=== PATIENT | male | born 1985 | race Caucasian/White ===

== ENCOUNTER → 2018-02-21 15:56 | Outpatient (CLI) | payer BC, SELFPAY ==
[2018-02-21 16:08] LABS: Basophils # 0.1 K/mm3 (0-0.2); Eosinophils # 0.1 K/mm3 (0.0-0.4); Eosinophils % 1.9 % (0.1-12.0); Hematocrit 41.2 % (42.0-52.0); Hemoglobin 13.8 g/dL (14.1-18.0); Lymphocytes # 1.9 K/mm3 (0.7-4.5); Lymphocytes % 29.8 K/mm3 (10-50); Mean Corpuscular HGB Conc 33.5 g/dL (31.8-35.4); Mean Corpuscular Hemoglobin 29.3 pg (27.0-31.2); Mean Corpuscular Volume 87.6 fl (80-94); Mean Platelet Volume 7.5 fl (7.4-10.4); Monocytes # 0.3 K/mm3 (0.1-1.0); Monocytes % 4.9 % (1.7-9.3); Neutrophils % 62.4 % (37.0-80.0); Platelet Count 273 K/mm3 (142-424); Red Cell Distribution Width 13.1 % (11.5-17.5); White Blood Count 6.4 K/mm3 (4.8-10.8)
[2018-02-21 18:06] LABS: Erythrocyte Sedimentation Rate 10 mm/hr (0-15)
[2018-02-28 13:00] LABS: HLA-B27 Positive (.)
== END ==
PROVIDERS: Visit Provider Internal Medicine
DX: H20.029 Recurrent acute iridocyclitis, unspecified eye (principal); M54.9 Dorsalgia, unspecified
CPT/HCPCS: 36415; 85025; 85651; 86812

== ENCOUNTER → 2018-03-14 14:23 | Outpatient (CLI) | payer BC, SELFPAY ==
--- NOTE | 2018-03-14 14:29 | XR_ITS ---
XR hip LT 2-3V w/pelvis HISTORY: ITS.REASON: LEFT POSTERIOR HIP PAIN ORDERING PHYSICIAN: Yazan Wayne PATIENT AGE: 32 years COMPARISON: None FINDINGS: No fracture or dislocation is evident. No significant degenerative change. No lytic or blastic change. Unremarkable soft tissues IMPRESSION: Negative hip
== END ==
PROVIDERS: PCP Internal Medicine; Visit Provider Internal Medicine
DX: M25.552 Pain in left hip (principal)
CPT/HCPCS: 73502

== ENCOUNTER → 2018-07-01 15:22 | Outpatient (CLI) | payer BC, SELFPAY ==
[2018-07-01 15:40] LABS: Basophils # 0.1 K/mm3 (0-0.2); Basophils % 0.9 % (0.1-2.0); Eosinophils # 0.1 K/mm3 (0.0-0.4); Eosinophils % 1.8 % (0.1-12.0); Hematocrit 41.8 % (42.0-52.0); Hemoglobin 13.6 g/dL (14.1-18.0); Lymphocytes # 1.9 K/mm3 (0.7-4.5); Lymphocytes % 28.4 K/mm3 (10-50); Mean Corpuscular HGB Conc 32.4 g/dL (31.8-35.4); Mean Corpuscular Hemoglobin 28.4 pg (27.0-31.2); Mean Corpuscular Volume 87.5 fl (80-94); Mean Platelet Volume 7.2 fl (7.4-10.4); Monocytes # 0.3 K/mm3 (0.1-1.0); Monocytes % 4.5 % (1.7-9.3); Neutrophils # 4.4 K/mm3 (1.8-7.8); Neutrophils % 64.4 % (37.0-80.0); Platelet Count 265 K/mm3 (142-424); Red Blood Count 4.78 M/mm3 (4.60-6.20); Red Cell Distribution Width 13.2 % (11.5-17.5); White Blood Count 6.7 K/mm3 (4.8-10.8)
[2018-07-01 16:51] LABS: Alanine Aminotransferase 26 U/L (12-78); Albumin Level 4.1 gm/dL (3.4-5.0); Albumin/Globulin Ratio 1.2 (1.1-1.8); Alkaline Phosphatase 79 U/L (46-116); Anion Gap 13.5 mEq/L (5-15); Aspartate Amino Transferase 18 U/L (15-37); Bilirubin,Total 0.4 mg/dL (0.2-1.0); Blood Urea Nitrogen 25 mg/dL (7-18); Calcium 9.6 mg/dL (8.5-10.1); Carbon Dioxide 29 mmol/L (21.0-32.0); Chloride 103 mmol/L (98-107); Chol/HDL Ratio 2.9 (1-3.5); Cholesterol 230 mg/dL (140-200); Creatinine,Serum 0.98 mg/dL (0.70-1.30); Estimated Glomerular Filt Rate 88 ml/min (>60); GFR (African American) 107 ML/MIN (>60); Globulin 3.3 gm/dl (1.3-3.2); Glucose 92 mg/dL (74-106); HDL Cholesterol 78 mg/dL (27-67); LDL Cholesterol 140 mg/dL (0-130); Potassium 4.5 mmoL/L (3.5-5.1); Sodium 141 mmol/L (136-145); Thyroid Stimulating Hormone 0.45 uIU/ml (0.358-3.740); Total Protein,Serum 7.4 gm/dL (6.4-8.2); Triglycerides 62 mg/dL (30-200); VLDL Cholesterol 12 mg/dL (0-40)
[2018-07-04 19:10] LABS: Testosterone,Free 5.1 pg/mL (8.7-25.1)
== END ==
PROVIDERS: PCP Internal Medicine; Visit Provider Internal Medicine
DX: I95.1 Orthostatic hypotension (principal); K29.70 Gastritis, unspecified, without bleeding; E78.5 Hyperlipidemia, unspecified; R68.82 Decreased libido
CPT/HCPCS: 36415; 80053; 80061; 84402; 84443; 85025

== ENCOUNTER → 2018-08-12 08:43 | Outpatient (CLI) | payer BC, SELFPAY ==
[2018-08-14 15:18] LABS: Testosterone,Free 3.5 pg/mL (8.7-25.1)
== END ==
PROVIDERS: Visit Provider Internal Medicine
DX: R79.89 Other specified abnormal findings of blood chemistry (principal)
CPT/HCPCS: 36415; 84402

== ENCOUNTER → 2018-08-25 16:59 | Outpatient (CLI) | payer BC, SELFPAY ==
[2018-08-27 07:17] LABS: FSH 1.3 mIU/mL (1.5-12.4); LH 3.3 mIU/mL (1.7-8.6)
[2018-08-27 09:18] LABS: Prolactin 6.3 ng/mL (4.0-15.2)
== END ==
LOC: LAB 08-26 08:30 → LAB.DROPOF 08-26 08:30
PROVIDERS: Visit Provider Internal Medicine
DX: R79.89 Other specified abnormal findings of blood chemistry (principal)
CPT/HCPCS: 83001; 83002; 84146

== ENCOUNTER → 2018-09-09 09:48 | Outpatient (CLI) | payer BC, SELFPAY ==
--- NOTE | 2018-09-09 09:50 | MR_ITS ---
MR head/brain wo/w con HISTORY: Dizziness, decreased pituitary function, low testosterone ITS.REASON: DECREASE PITUITARY FUNCTION ORDERING PHYSICIAN: Yazan Wayne PATIENT AGE: 33 years Comparison: None TECHNIQUE: Standard multiplanar multiecho sequences are performed without and with gadolinium enhancement. Dynamic imaging is performed of the pituitary gland following contrast administration with coronal thin sections. FINDINGS: No midline shift, mass effect, intracranial hemorrhage, hydrocephalus, or acute infarction is evident. There are nonspecific perivascular dilated spaces along the cerebral convexity.. No enhancing lesions are evident. No intra or extra-axial mass. The cerebellopontine angles, cerebellum, and brainstem have an unremarkable appearance The pituitary has an unremarkable appearance. No abnormal enhancement or pituitary mass or microadenoma evident. The pituitary stalk is midline. Optic chiasm is unremarkable. The craniocervical junction is unremarkable. There is normal yusuf-white matter differentiation with no abnormal white matter signal intensity evident. There is some mild mucosal thickening of the ethmoid sinuses. IMPRESSION: 1. Negative MRI of the brain without and with contrast. 2. No evidence of pituitary lesion
== END ==
PROVIDERS: PCP Internal Medicine; Visit Provider Internal Medicine
DX: E23.0 Hypopituitarism (principal); E29.1 Testicular hypofunction
CPT/HCPCS: 70553; A9576

== ENCOUNTER → 2018-11-11 12:27 | Outpatient (CLI) | payer BC, SELFPAY ==
[2018-11-12 08:58] LABS: Testosterone,Total 314 ng/dL (264-916)
== END ==
PROVIDERS: Visit Provider Internal Medicine
DX: E29.1 Testicular hypofunction (principal)
CPT/HCPCS: 36415; 84403

== ENCOUNTER → 2019-09-16 16:18 | Outpatient (CLI) | payer BC, SELFPAY ==
[2019-09-16 16:26] LABS: Basophils % 0.7 % (0.1-2.0); Eosinophils # 0.1 K/mm3 (0.0-0.4); Eosinophils % 1.8 % (0.1-12.0); Hematocrit 46.9 % (42.0-52.0); Hemoglobin 15.6 g/dL (14.1-18.0); Lymphocytes # 1.7 K/mm3 (0.7-4.5); Lymphocytes % 32.9 % (10-50); Mean Corpuscular HGB Conc 33.3 g/dL (31.8-35.4); Mean Corpuscular Hemoglobin 29.7 pg (27.0-31.2); Mean Corpuscular Volume 89.2 fl (80-94); Mean Platelet Volume 7.9 fl (7.4-10.4); Monocytes # 0.5 K/mm3 (0.1-1.0); Neutrophils # 2.8 K/mm3 (1.8-7.8); Neutrophils % 55.7 % (37.0-80.0); Platelet Count 223 K/mm3 (142-424); Red Blood Count 5.26 M/mm3 (4.60-6.20); Red Cell Distribution Width 13.1 % (11.5-17.5); White Blood Count 5.1 K/mm3 (4.8-10.8)
[2019-09-16 17:52] LABS: Alanine Aminotransferase 54 U/L (12-78); Albumin Level 3.7 gm/dL (3.4-5.0); Albumin/Globulin Ratio 1.1 (1.1-1.8); Alkaline Phosphatase 66 U/L (46-116); Amylase 43 U/L (25-115); Anion Gap 12.3 mEq/L (5-15); Aspartate Amino Transferase 38 U/L (15-37); Bilirubin,Total 0.4 mg/dL (0.2-1.0); Blood Urea Nitrogen 18 mg/dL (7-18); Calcium 8.6 mg/dL (8.5-10.1); Carbon Dioxide 30 mmol/L (21.0-32.0); Chloride 101 mmol/L (98-107); Creatinine,Serum 0.99 mg/dL (0.70-1.30); Estimated Glomerular Filt Rate 87 ml/min (>60); GFR (African American) 105 ML/MIN (>60); Globulin 3.3 gm/dl (1.3-3.2); Glucose 85 mg/dL (74-106); Potassium 4.3 mmoL/L (3.5-5.1); Sodium 139 mmol/L (136-145)
== END ==
PROVIDERS: Visit Provider Internal Medicine
DX: R10.9 Unspecified abdominal pain (principal); R11.0 Nausea
CPT/HCPCS: 80053; 82150; 85025

== ENCOUNTER 2020-10-16 11:48 | Emergency (ER) | payer BC, SELFPAY ==
[2020-10-16 11:49] VITALS: BP 136/85; PULSE 81; RESP 16; TEMP 36.9; O2SAT 98; BMI 27.2
--- NOTE | 2020-10-16 12:05 | CT_ITS ---
PROCEDURE: CT HEAD/BRAIN WO CON CLINICAL INDICATION: feeling weird Facial in head tingling, stroke valuation COMPARISON: No exams were available for comparison TECHNIQUE: Axial images obtained. All CT scans at the facility use one or more dose reduction, viz: automated exposure control, ma/kV adjustment per patient size (including targeted exams where dose is matched to indication, i.e. head), or iterative reconstruction technique. FINDINGS: No midline shift, mass effect, intracranial hemorrhage, hydrocephalus, or extra-axial fluid collection is evident. The calvarium has an unremarkable appearance. No mastoid effusion. No sinus air-fluid level. There is mild prominence of the adenoids. Minimal mucosal thickening involves the ethmoid sinuses. IMPRESSION: No acute intracranial finding Dictated by: Mina Sierra MD 10/16/2020 12:35 Mina Sierra MD in [place] 10/16/2020 12:35
--- NOTE | 2020-10-16 12:12 | HMH.EDGENADL ---
ED Disposition Clinical Impression: Dehydration Acute sinusitis Qualifiers: Sinusitis location: frontal Disposition: Home, Self-Care Condition on Discharge: Good Instructions: Sinusitis Additional Instructions: You were seen on an emergency basis. It is very important that you follow up with your primary care provider and/or specialist as we discussed within 2 days. All labs and imaging were obtained and interpreted here to rule out life threatening emergencies, but your final results should be reviewed by your primary doctor at your follow up appointment. Please return to the emergency department if any of your symptoms worsen, or if they do not improve as we discussed. Prescriptions: Amoxicillin/Potassium Clav [Augmentin 875-125 Tablet] 1 tab PO Q12H #20 tab Prescription Printed Fluticasone Propionate [Flonase 50mcg nasal spray 16gm] 1 spr NS DAILY #1 bottle Prescription Printed Referrals: Yazan Wayne [Primary Care Provider] - - Critical Care Critical Care Time: No Attestation: On , the high probability of a clinically significant, sudden or life threatening deterioration of the following system(s) required my full and direct attention, intervention and personal management. The time I documented below is in addition to time spent performing reported procedures but includes the following listed in this critical care notation. Medical Decision Making - Medical Records Medical records reviewed: Yes: I reviewed the patient's medical records. - Bobby Inquiry Pt receiving controlled substance: No Vital Signs: 10/16/20 11:49 10/16/20 12:19 10/16/20 13:19 Temperature 98.4 F Temperature Source Oral Pulse Rate [Right] 81 75 69 Respiratory Rate 16 18 18 Blood Pressure [Right Arm] 136/85 133/76 133/71 Blood Pressure Mean [Right Arm] 102 95 91 Blood Pressure Source [Right Arm] Automatic Cuff Automatic Cuff Automatic Cuff Blood Pressure Position [Right Arm] Sitting Sitting Supine 02 Sat by Pulse Oximetry 98 98 96 Oxygen Delivery Method Room Air 10/16/20 13:30 Temperature Temperature Source Pulse Rate [Right] 84 Respiratory Rate 16 Blood Pressure [Right Arm] 133/71 Blood Pressure Mean [Right Arm] 91 Blood Pressure Source [Right Arm] Automatic Cuff Blood Pressure Position [Right Arm] Sitting 02 Sat by Pulse Oximetry 98 Oxygen Delivery Method Room Air - Lab Data Lab Results 10/16/20 12:45: WBC 3.8 L, RBC 4.90, Hgb 14.6, Hct 43.5, MCV 88.9, MCH 29.8, MCHC 33.6, RDW 13.6, Plt Count 229, MPV 7.7, Neut % (Auto) 53.7, Lymph % (Auto) 36.4, [place] % (Auto) 6.9, Eos % (Auto) 1.6, Baso % (Auto) 1.3, Neut # (Auto) 2.0, Lymph # (Auto) 1.4, [place] # (Auto) 0.3, Eos # (Auto) 0.1, Baso # (Auto) 0.1 10/16/20 12:45: Sodium 137, Potassium 4.4, Chloride 102, Carbon Dioxide 28, Anion Gap 11.4, BUN 14, Creatinine 0.90, Estimated Creat Clear 140, Estimated GFR 96, Est GFR ( Amer) 116, Glucose 103 H, Calcium 9.5, Total Bilirubin 0.6, AST 48, ALT 37, Alkaline Phosphatase 65, Total Protein 7.5, Albumin 4.6, Globulin 2.9, Albumin/Globulin Ratio 1.6 Result diagrams: 10/16/20 12:45 10/16/20 12:45 Orders (Tests/Meds): ED MEDICATIONS Generic Name Dose Route Start Last Admin Trade Name Freq PRN Reason Stop Dose Admin Sodium Chloride 1,000 mls @ 999 mls/hr 10/16/20 12:15 10/16/20 13:03 Sod Chlor 0.9% 1000ml Bag IV 10/16/20 13:15 999 mls/hr .Q1H1M JUSTINE Administration Medical Decision Narrative: 35-year-old male presenting with facial paresthesias and frontal pressure. Nontoxic, afebrile, hemodynamically stable, nonfocal, neuro intact, atraumatic. Head CT negative for acute disease. EKG nonischemic and without arrhythmia. Electrolytes and glucose are nonactionable. CBC is nonactionable. Symptoms improved with 1 L of IV lactated Ringer's. Clinically, patient has sinusitis and will treat with Augmentin and have him follow-up with PCP in 2 days. General Adult HPI - General Chief com
--- NOTE | 2020-10-16 12:13 | PC.NURSE ---
pt going to CT
[2020-10-16 12:19] VITALS: BP 133/76; PULSE 75; RESP 18; O2SAT 98
[2020-10-16 12:52] LABS: Basophils # 0.1 K/mm3 (0-0.2); Basophils % 1.3 % (0.1-2.0); Eosinophils # 0.1 K/mm3 (0.0-0.4); Eosinophils % 1.6 % (0.1-12.0); Hematocrit 43.5 % (42.0-52.0); Hemoglobin 14.6 g/dL (14.1-18.0); Lymphocytes # 1.4 K/mm3 (0.7-4.5); Lymphocytes % 36.4 % (10-50); Mean Corpuscular HGB Conc 33.6 g/dL (31.8-35.4); Mean Corpuscular Hemoglobin 29.8 pg (27.0-31.2); Mean Corpuscular Volume 88.9 fl (80-94); Mean Platelet Volume 7.7 fl (7.4-10.4); Monocytes # 0.3 K/mm3 (0.1-1.0); Monocytes % 6.9 % (1.7-9.3); Neutrophils % 53.7 % (37.0-80.0); Platelet Count 229 K/mm3 (142-424); Red Cell Distribution Width 13.6 % (11.5-17.5); White Blood Count 3.8 K/mm3 (4.8-10.8)
--- NOTE | 2020-10-16 12:55 | ECG_ITS ---
APPROVED REPORT Exam: Resting ECG HR:67 bpm ECG Measurements Heart Rate 67 AXES MD 146 P 55 QRSd 102 QRS 61 QT 386 T 54 QTc 407 Conclusion Normal sinus rhythm with sinus arrhythmia Incomplete right bundle branch block Late R wave progression Abnormal ECG Electronically signed by : Cricket Matthews, 10/16/2020 17:41:08
[2020-10-16 13:03] LABS: Alanine Aminotransferase 37 U/L (12-78); Albumin Level 4.6 g/dl (3.5-5.0); Albumin/Globulin Ratio 1.6 (1.1-1.8); Alkaline Phosphatase 65 U/L (38-126); Anion Gap 11.4 mEq/L (5-15); Aspartate Amino Transferase 48 U/L (17-59); Bilirubin,Total 0.6 mg/dl (0.2-1.3); Blood Urea Nitrogen 14 mg/dl (9-20); Calcium 9.5 mg/dl (8.4-10.2); Carbon Dioxide 28 mmol/L (22.0-30.0); Chloride 102 mmol/L (98-107); Creatinine Clearance Estimated 140 mL/min (50-200); Estimated Glomerular Filt Rate 96 ml/min (>60); GFR (African American) 116 ML/MIN (>60); Globulin 2.9 g/dL (1.3-3.2); Glucose 103 mg/dl (74-100); Potassium 4.4 mmoL/L (3.5-5.1); Sodium 137 mmol/L (136-145); Total Protein,Serum 7.5 g/dl (6.3-8.2)
[2020-10-16 13:19] VITALS: BP 133/71; PULSE 69; RESP 18; O2SAT 96
[2020-10-16 13:30] VITALS: BP 133/71; PULSE 84; RESP 16; O2SAT 98
[2020-10-16 14:40] VITALS: BP 127/78; PULSE 78; RESP 16; TEMP 36.6; O2SAT 98
== END 2020-10-16 14:41 | disposition home or self-care (01) ==
PROVIDERS: Emergency Provider Physician Assistant; PCP Internal Medicine
DX: E86.0 Dehydration (principal); J01.90 Acute sinusitis, unspecified; M45.9 Ankylosing spondylitis of unspecified sites in spine
CPT/HCPCS: 70450; 80053; 85025; 93005; 96365; 99283

== ENCOUNTER → 2020-10-17 15:51 | Outpatient (CLI) | payer BC, SELFPAY ==
--- NOTE | 2020-10-17 15:56 | XR_ITS ---
PROCEDURE: XR SHOULDER LT MIN 2V CLINICAL INDICATION: LT SHOULDER PAIN COMPARISON: No exams were available for comparison FINDINGS: No fracture or dislocation. No lytic or blastic change. There is normal mineralization. The joint spaces are well-preserved. No significant degenerative/arthritic changes. No erosive changes evident. Other findings:None. IMPRESSION: No acute findings. Dictated by: Mina Sierra MD 10/17/2020 16:16 Mina Sierra MD in [place] 10/17/2020 16:16
== END ==
PROVIDERS: PCP Internal Medicine; Visit Provider Internal Medicine
DX: M25.512 Pain in left shoulder (principal)
CPT/HCPCS: 73030

== ENCOUNTER → 2020-11-02 08:06 | Outpatient (CLI) | payer BC, SELFPAY ==
--- NOTE | 2020-11-02 08:11 | XR_ITS ---
PROCEDURE: XR SHOULDER LT MIN 2V CLINICAL INDICATION: left shoulder pain COMPARISON: DX XR SHOULDER LT MIN 2V from 10/17/2020 FINDINGS: No fracture or dislocation. No lytic or blastic change. There is normal mineralization. The joint spaces are well-preserved. No significant degenerative/arthritic changes. No erosive changes evident. Other findings:None. IMPRESSION: Negative left shoulder Dictated by: Mina Sierra MD 11/02/2020 11:01 Mina Sierra MD in [place] 11/02/2020 11:01
== END ==
PROVIDERS: PCP Internal Medicine; Visit Provider Orthopaedic Surgery
DX: M25.512 Pain in left shoulder (principal)
CPT/HCPCS: 73030

== ENCOUNTER → 2021-06-27 10:34 | Outpatient (CLI) | payer BC, SELFPAY | PROVIDERS: PCP Internal Medicine; Visit Provider Nurse Practitioner | DX: Z20.822 Contact with and (suspected) exposure to COVID-19 (principal) | CPT/HCPCS: C9803; U0003; U0005 ==

== ENCOUNTER 2021-07-02 09:52 | Emergency (ER) | payer BC, SELFPAY ==
[2021-07-02 11:00] VITALS: BP 126/81; PULSE 75; RESP 19; TEMP 37.1; O2SAT 98; BMI 25.0
[2021-07-02 11:10] VITALS: BP 126/81; PULSE 75; RESP 19; TEMP 37.1; O2SAT 98
--- NOTE | 2021-07-02 11:19 | HMH.EDUTC ---
[facility] [place] Clinical Impression: Encounter for laboratory testing for COVID-19 virus Disposition: Home, Self-Care Condition on Discharge: Good Instructions: DI for COVID-19 (Suspected or Confirmed ), Preventing the Spread of Coronavirus Discharge Instructions Additional Instructions: *Monitor Temp, Over the counter Motrin or Tylenol as directed/as needed Tylenol every 4 hours and Motrin every 6 hours (as long as your family doctor has told you that you can take it) for fever or pain. and straight to ER if unable to lower temp less than 101.0 after medication given Follow up IMMEDIATELY for new or worsening symptoms or no Noticeable improvement over the next 48-72 hours. 911 for difficulty breathing or swallowing You were tested for today for COVID19 your test result should be back in the next 24-48 hours, you may call to the [facility] to see if your test results are back in the next 48 hours [phone] [facility] hours are 9am-9pm You was given a handout with instructions for Self Quarantine and Self isolation for while you wait on test results and what to do if they are positive If you are positive the Health Dept will be contacting you also Make sure to take your Vitamins Vit. C Vit D and Zinc if you can take them Referrals: Yazan Wayne [Primary Care Provider] - As needed Forms: Work/School Release Medical Decision Making - Bobby Inquiry Pt receiving controlled substance: No Bobby was queried for this patient: No Vital Signs: 07/02/21 11:00 07/02/21 11:10 Temperature 98.7 F 98.7 F Temperature Source Temporal Artery Scan Temporal Artery Scan Pulse Rate 75 Pulse Rate [Right Brachial] 75 Respiratory Rate 19 19 Blood Pressure 126/81 Blood Pressure [Right Arm] 126/81 Blood Pressure Mean [Right Arm] 96 Blood Pressure Source Automatic Cuff Blood Pressure Source [Right Arm] Automatic Cuff Blood Pressure Position Sitting Blood Pressure Position [Right Arm] Sitting 02 Sat by Pulse Oximetry 98 Oxygen Delivery Method Room Air Room Air Orders (Tests/Meds): ORDERS Category Date Time Status Covid-19 Nasal PCR ([facility]) Routine Lab 07/02/21 10:35 [place] [facility] [place] - General Stated complaint: covid test / expose Time Seen by Provider: 07/02/21 11:00 Mode of Arrival: Ambulatory Source of Information: Patient Description of Symptoms (Recalled from Triage Doc. by RN): covid test HEENT Symptoms (Recalled from RN notes): No Resp Symptoms (Recalled from RN notes): No Skin Symptoms (Recalled from RN notes): No MS Symptoms (Recalled from RN notes): No Functional Status (Recalled from RN notes): yes - History of Present Illness Provider Complaint: Patient states that his childrens mother recently tested positive for COVID but wasnt having any symptoms States that he has been keeping thier child that was around her and his work wanted him to get tested States that he is not having any symptoms at this time - Related Data Home Medications Medication Instructions Recorded Confirmed adalimumab 10 mg/0.2 mL See Rx Instructions SQ .COMPLEX 11/02/20 11/02/20 subcutaneous syringe kit Allergies Allergy/AdvReac Type Severity Reaction Status Date / Time No Known Allergies Allergy Verified 07/02/21 11:09 - Worker's Comp Is this a Worker's Comp case?: No Is this an H Worker's Comp?: No Is this a [place] Worker's Comp?: No [facility] History - Hepatitis A Screen Drug use history?: No High risk sexual behaviors?: No History of sexually transmitted infection?: No Currently employed?: No Childcare worker?: No Do you have indoor plumbing?: Yes Do you have electricity?: Yes Attestation statement:: This patient has been screened for Hepatitis A risk factors. I have reviewed the patient's past medical history: Yes Comment: Autoimmune disorder. Laterality Cases: Bilateral: Tonsillectomy Other Surgeries: Yes: EGD Amputation: No Fractures: No - Social History Smoking Status: Current some
== END 2021-07-02 11:10 | disposition home or self-care (01) ==
PROVIDERS: Emergency Provider Nurse Practitioner; PCP Internal Medicine
DX: Z20.822 Contact with and (suspected) exposure to COVID-19 (principal)
CPT/HCPCS: 99202; C9803; G0463; U0003; U0005

== ENCOUNTER → 2021-10-25 08:38 | Outpatient (CLI) | payer BC, SELFPAY | PROVIDERS: Visit Provider Nurse Practitioner | DX: U07.1 COVID-19 (principal) | CPT/HCPCS: C9803; U0003; U0005 ==

== ENCOUNTER → 2021-12-11 12:34 | Outpatient (CLI) | payer BC, SELFPAY ==
[2021-12-11 13:27] LABS: Basophils # 0.1 K/mm3 (0-0.2); Basophils % 1.3 % (0.1-2.0); Eosinophils # 0.1 K/mm3 (0.0-0.4); Eosinophils % 2.5 % (0.1-12.0); Hematocrit 44.8 % (42.0-52.0); Hemoglobin 14.8 g/dL (14.1-18.0); Lymphocytes # 1.9 K/mm3 (0.7-4.5); Lymphocytes % 41.1 % (10-50); Mean Corpuscular HGB Conc 33.1 g/dL (31.8-35.4); Mean Corpuscular Hemoglobin 30.1 pg (27.0-31.2); Mean Corpuscular Volume 90.9 fl (80-94); Mean Platelet Volume 8.4 fl (7.4-10.4); Monocytes # 0.3 K/mm3 (0.1-1.0); Monocytes % 5.4 % (1.7-9.3); Neutrophils # 2.3 K/mm3 (1.8-7.8); Neutrophils % 49.7 % (37.0-80.0); Platelet Count 270 K/mm3 (142-424); Red Blood Count 4.93 M/mm3 (4.60-6.20); Red Cell Distribution Width 13.5 % (11.5-17.5); White Blood Count 4.6 K/mm3 (4.8-10.8)
[2021-12-11 14:26] LABS: Chloride 98 mmol/L (98-107); Potassium 4.3 mmoL/L (3.5-5.1); Sodium 134 mmol/L (136-145)
[2021-12-11 14:28] LABS: Alanine Aminotransferase 20 U/L (12-78); Aspartate Amino Transferase 28 U/L (17-59); Blood Urea Nitrogen 17 mg/dl (9-20); Estimated Glomerular Filt Rate 85 ml/min (>60); GFR (African American) 102 ML/MIN (>60)
[2021-12-11 14:29] LABS: Albumin Level 4.7 g/dl (3.5-5.0); Albumin/Globulin Ratio 1.8 (1.1-1.8); Alkaline Phosphatase 54 U/L (38-126); Anion Gap 9.3 mEq/L (5-15); Bilirubin,Total 0.8 mg/dl (0.2-1.3); Calcium 8.7 mg/dl (8.4-10.2); Carbon Dioxide 31 mmol/L (22.0-30.0); Chol/HDL Ratio 4.3 (1-3.5); Cholesterol 262 mg/dl (140-200); Globulin 2.6 g/dL (1.3-3.2); Glucose 74 mg/dl (74-100); HDL Cholesterol 61 mg/dl (40-60); Magnesium 1.9 mg/dl (1.6-2.3); Total Protein,Serum 7.3 g/dl (6.3-8.2); Triglycerides 49 mg/dl (30-150); VLDL Cholesterol 10 mg/dL (0-40)
[2021-12-11 15:00] LABS: Direct LDL Cholesterol 163.64 mg/dL (100-129)
[2021-12-11 15:10] LABS: Thyroid Stimulating Hormone 0.57 uIU/mL (0.465-4.68)
[2021-12-13 11:13] LABS: Testosterone,Total 1040 ng/dL (264-916)
== END ==
PROVIDERS: Visit Provider Internal Medicine
DX: E78.5 Hyperlipidemia, unspecified (principal); E29.1 Testicular hypofunction; M45.6 Ankylosing spondylitis lumbar region; Z83.49 Family history of other endocrine, nutritional and metabolic diseases
CPT/HCPCS: 80053; 80061; 83735; 84403; 84443; 85025

== ENCOUNTER → 2022-01-25 14:50 | Outpatient (CLI) | payer BC, SELFPAY ==
[2022-02-02 22:20] LABS: D001-IgE D pteronyssinus 1.11 kU/L (Class II); D002-IgE D farinae 1.17 kU/L (Class II); E001-IgE Cat Dander <0.10 kU/L (Class 0); E005-IgE Dog Dander <0.10 kU/L (Class 0); E072-IgE Mouse Urine <0.10 kU/L (Class 0); G006-IgE Timothy Grass 0.38 kU/L (Class I); I006-IgE Cockroach, German 0.86 kU/L (Class II); Immunoglobulin E, Total 238 IU/mL (6-495); M001-IgE Penicillium chrysogen <0.10 kU/L (Class 0); M002-IgE Cladosporium herbarum <0.10 kU/L (Class 0); M003-IgE Aspergillus fumigatus <0.10 kU/L (Class 0); M006-IgE Alternaria alternata <0.10 kU/L (Class 0); T001-IgE Maple/Box Elder 0.36 kU/L (Class I); T003-IgE Common Silver Birch 0.16 kU/L (Class 0/I); T006-IgE Cedar, Mountain 0.32 kU/L (Class I); T007-IgE Oak, White 0.35 kU/L (Class I); T008-IgE Elm, American 0.38 kU/L (Class I); T010-IgE Walnut 0.28 kU/L (Class 0/I); T011-IgE Maple Leaf Sycamore 0.38 kU/L (Class I); T014-IgE Cottonwood 0.36 kU/L (Class I); T015-IgE Ash, White 0.42 kU/L (Class I); T022-IgE Pecan, Hickory 0.23 kU/L (Class 0/I); T070-IgE White Mulberry 0.27 kU/L (Class 0/I); W001-IgE Ragweed, Short 0.71 kU/L (Class II); W011-IgE Thistle, Russian 0.49 kU/L (Class I); W014-IgE Pigweed, Common 0.38 kU/L (Class I); W018-IgE Sheep Sorrel 0.53 kU/L (Class I)
== END ==
PROVIDERS: Visit Provider Otolaryngology
DX: J30.9 Allergic rhinitis, unspecified (principal); J34.2 Deviated nasal septum
CPT/HCPCS: 36415; 82785; 86003

== ENCOUNTER → 2022-02-14 14:43 | Outpatient (CLI) | payer BC, SELFPAY ==
--- NOTE | 2022-02-14 14:43 | CT_ITS ---
FINAL REPORT TECHNIQUE: Axial imaging of the sinuses was obtained without contrast. This study was performed with techniques to keep radiation doses as low as reasonably achievable (ALARA). Individualized dose reduction techniques using automated exposure control or adjustment of mA and/or kV according to the patient's size were employed. CLINICAL HISTORY: allergic rhinitis COMPARISON: 10/16/2020 FINDINGS: There is minimal mucoperiosteal thickening of the right maxillary sinus. The OMUs are patent. There is no fracture. There are no air-fluid levels. IMPRESSION: Minimal mucoperiosteal thickening of the right maxillary sinus. Reviewed, Interpreted and Dictated by Charles Ramirez MD Transcribed by Mervat Powell Authenticated by Charles Ramirez MD on 02/16/2022 09:18:12 AM [facility]
== END ==
LOC: RAD 14:43
PROVIDERS: PCP Internal Medicine; Visit Provider Otolaryngology
DX: J30.9 Allergic rhinitis, unspecified (principal); J34.2 Deviated nasal septum
CPT/HCPCS: 70486

== ENCOUNTER → 2022-04-27 08:05 | Outpatient (CLI) | payer BC, SELFPAY ==
--- NOTE | 2022-04-27 | CA_ITS ---
APPROVED REPORT Exam: Exercise Treadmill Technologist: Luly Ortiz, Ht: 6 ft 0 in Wt: 174 lbs BSA: 2.01 m2 HR: 80 bpm BP: 152/82 mmHg Rhythm: NSR Medical History Medications: Flonase,,,,, Testosterone,,,,, ADALimumab,,,,, Stress Test Details Test: Daren HR Resting HR: 85 bpm Max Heart Rate (APMHR): 183.696959 bpm Max HR Achieved: 184 bpm Target HR (85% APMHR): 155.153469 bpm % of APMHR: 100.55 Recovery HR: 163 bpm BP Resting BP: 144/80 mmHg Max BP: 196/74 mmHg Recovery BP: 180.0/83.0 mmHg ECG Resting ECG: NSR Clinical Reason for Termination: Dyspnea Exercise duration: 14:00 min Highest Stage Achieved: Exercise capacity: 14.8 METs Stress ECG Conclusion Pt excercised total of 14 minutes. 14.8 METS. No CP noted. No arrhythmias noted. <1.5mm ST segment changes. Negative stress. Test Summary REST . . . . . . . Sitting REST . . . . . . . Standing REST 03:01 0.0 1.2 85 . 144/ 80 . . Stage 1 01:00 10.0 1.7 98 . . . . Stage 1 02:00 10.0 1.7 103 . . . . Stage 1 03:00 10.0 1.7 112 . 142/ 81 . . Stage 2 01:00 12.0 2.5 108 . . . . Stage 2 02:00 12.0 2.5 118 . . . . Stage 2 03:00 12.0 2.5 122 . 150/ 85 . . Stage 3 01:00 14.0 3.4 140 . . . . Stage 3 02:00 14.0 3.4 140 . . . . Stage 3 03:00 14.0 3.4 138 . 165/ 90 . . Stage 4 01:00 16.0 4.2 151 . . . . Stage 4 02:00 16.0 4.2 162 . . . . Stage 4 03:00 16.0 4.2 168 . . . . Stage 5 01:00 18.0 5.0 173 . . . . Stage 5 02:00 18.0 5.0 183 . . . Stop exercise at 14:00 RECOVERY 01:00 0.0 0.0 164 . 180/ 83 . . RECOVERY 02:00 0.0 0.0 130 . 180/ 83 . . RECOVERY 03:00 0.0 0.0 122 . 180/ 83 . . RECOVERY 04:00 0.0 0.0 112 . 196/ 74 . . RECOVERY 04:52 0.0 0.0 112 . 155/ 73 . . Electronically signed by : Yazan Wayne MD 05/02/2022 15:28:44
== END ==
LOC: RT 08:06
PROVIDERS: PCP Internal Medicine; Visit Provider Internal Medicine
DX: R07.89 Other chest pain (principal)
CPT/HCPCS: 93017

== ENCOUNTER → 2022-11-20 16:07 | Outpatient (CLI) | payer BC, SELFPAY ==
--- NOTE | 2022-11-20 | ECG_ITS ---
APPROVED REPORT Exam: Resting ECG HR:86 bpm ECG Measurements Heart Rate 86 AXES WV 149 P 52 QRSd 110 QRS 46 QT 339 T 32 QTc 383 Conclusion SINUS RHYTHM NORMAL ECG Electronically signed by : Yazan Wayne MD 11/20/2022 16:37:26
[2022-11-20 18:21] LABS: Basophils # 0.1 K/mm3 (0-0.2); Basophils % 1.3 % (0.1-2.0); Eosinophils # 0.1 K/mm3 (0.0-0.4); Eosinophils % 1.4 % (0.1-12.0); Hematocrit 42.2 % (42.0-52.0); Hemoglobin 14.3 g/dL (14.1-18.0); Lymphocytes # 2.4 K/mm3 (0.7-4.5); Mean Corpuscular HGB Conc 33.8 g/dL (31.8-35.4); Mean Corpuscular Hemoglobin 29.5 pg (27.0-31.2); Mean Corpuscular Volume 87.2 fl (80-94); Monocytes # 0.4 K/mm3 (0.1-1.0); Monocytes % 5.8 % (1.7-9.3); Neutrophils # 3.1 K/mm3 (1.8-7.8); Neutrophils % 51.5 % (37.0-80.0); Platelet Count 291 K/mm3 (142-424); Red Blood Count 4.85 M/mm3 (4.60-6.20); Red Cell Distribution Width 13.4 % (11.5-17.5)
[2022-11-20 19:25] LABS: Erythrocyte Sedimentation Rate 9 mm/hr (0-15)
[2022-11-20 21:56] LABS: Alanine Aminotransferase 38 U/L (12-78); Albumin Level 4.4 g/dl (3.5-5.0); Albumin/Globulin Ratio 1.7 (1.1-1.8); Alkaline Phosphatase 66 U/L (38-126); Aspartate Amino Transferase 34 U/L (17-59); Bilirubin,Total 0.3 mg/dl (0.2-1.3); Blood Urea Nitrogen 15 mg/dl (9-20); Calcium 8.9 mg/dl (8.4-10.2); Carbon Dioxide 31 mmol/L (22.0-30.0); Chloride 103 mmol/L (98-107); Chol/HDL Ratio 4.3 (1-3.5); Cholesterol 206 mg/dl (140-200); Estimated Glomerular Filt Rate 95 ml/min (>60); GFR (African American) 115 ML/MIN (>60); Globulin 2.6 g/dL (1.3-3.2); Glucose 85 mg/dl (74-100); HDL Cholesterol 48 mg/dl (40-60); Sodium 140 mmol/L (136-145); Triglycerides 67 mg/dl (30-150); VLDL Cholesterol 13 mg/dL (0-40)
[2022-11-20 22:07] LABS: C-Reactive Protein 0.9 mg/L (0-4); Direct LDL Cholesterol 136.93 mg/dL (100-129)
[2022-11-20 22:12] LABS: Free T4 (Free Thyroxine) 1.44 ng/dl (0.78-2.19)
[2022-11-20 22:29] LABS: Thyroid Stimulating Hormone 0.37 uIU/mL (0.465-4.68)
== END ==
PROVIDERS: PCP Internal Medicine; Visit Provider Internal Medicine
DX: R07.9 Chest pain, unspecified (principal); R00.2 Palpitations; E78.5 Hyperlipidemia, unspecified; E29.1 Testicular hypofunction; M45.6 Ankylosing spondylitis lumbar region; Z83.49 Family history of other endocrine, nutritional and metabolic diseases
CPT/HCPCS: 80053; 80061; 84439; 84443; 85025; 85651; 86140; 93005; 93225; 93226

== ENCOUNTER → 2022-12-03 14:00 | Outpatient (CLI) | payer BC, SELFPAY ==
--- NOTE | 2022-12-03 | CA_ITS ---
APPROVED REPORT EXAM: Comprehensive 2D, Doppler, and color-flow Echocardiogram Quality Associate: Kasey Nguyễn, DEREK, RVS Ht: 6 ft 0 in Wt: 197lbs BSA: 2.12 BP: 111/72 mmHg Indications: Palpitations 2D Dimensions Aortic Root 2.99 cm LA Volume 63.20 mL Left Atrium 2.88 cm LA Volume Index 29.80 mL/m2 (M/F) 16-34 LVOT 2.05 cm (M/F) 1.5-2.5 M-Mode Dimensions RVDd 2.82 cm (0.9-2.6) LA Diam 2.91 cm (1.9-4.0) LVDd 4.50 cm (3.5-5.7) Ao Diam 3.55 cm (2.0-3.7) LVDs 2.61 cm (3.5-5.7) IVSd 1.00 cm (0.6-1.1) PWd 0.93 cm (0.6-1.1) EF (Teich) 73.20% EPSs 0.29 cm FS 42.00% EDV (Teich) 92.40 mL TAPSE 2.56 (<1.7) ESV (Teich) 24.80 mL LV Diastology E Decel Time 260.00 (160-240 msec) E/A Ratio 1.91 MED E' 10.30 (< 7 cm/sec) MED A' 12.60 cm/s E'/MED E' Ratio 6.50 (>14) LAT E' 15.50 (<10 cm/sec) LAT A' 10.70 cm/s E/LAT E' Ratio 4.32 (>14) Aortic Valve LVOT Max 133.00 (70-110 cm/s) LVOT VTI 25.37 cm AoV Peak Kushal. 154.00 (50-130 cm/s) AO Peak GR. 9.50 mmHg AO Mean GR. 5.00 (<5 mmHg) AO VTI 27.27 (18-25 cm) NADIA (VTI) 3.07 (2.5-4.5 cm2) Mitral Valve MV A Velocity 35.00 (40-130 cm/s) E/A Ratio 1.91 MV Decel. Time 260.00 (160-240 ms) Pulmonary Valve PV Peak Velocity 103.00 (50-150 cm/s) MT End VMAX 174.00 cm/s Tricuspid Valve TR P. Velocity 183.00 cm/s RAP Estimate 10.00 mmHg RVSP 23.50 mmHg Left Ventricle Left atrium is normal size, left ventricle is normal size, there is no concentric left ventricular hypertrophy, estimated ejection fraction 55% with no regional wall motion abnormality, diastolic parameters are within normal range. Right Ventricle Right atrium and right ventricular normal size and contractility. Aortic Valve Aortic valve is grossly normal there is no aortic stenosis aortic insufficiency. Mitral Valve Mitral valve is grossly normal, there is trace mitral regurgitation. Tricuspid Valve Tricuspid grossly normal, there is trace tricuspid regurgitation, tricuspid regurgitation jet velocity is inadequate for calculation of the right ventricular systolic pressure. Pulmonic Valve Pulmonic valve is poorly visualized. Great Vessels Aortic root is normal size. Inferior vena cava is normal size with normal inspiratory collapse. Pericardium No significant pericardial effusion noted. Conclusion 1. Normal left ventricular size, preserved left ventricular systolic function, estimated ejection fraction 55% with no regional wall motion abnormality, diastolic parameters are within normal range. 2. Trace mitral and tricuspid regurgitation. 3. No significant pericardial effusion noted. 4. Inferior vena cava is normal size with normal inspiratory collapse. Electronically signed by : Kelby Rivers MD 12/03/2022 17:00:35
== END ==
PROVIDERS: PCP Internal Medicine; Visit Provider Internal Medicine
DX: R07.9 Chest pain, unspecified (principal); R00.2 Palpitations
CPT/HCPCS: 93306

== ENCOUNTER → 2022-12-11 16:32 | Outpatient (CLI) | payer BC, SELFPAY ==
[2022-12-13 12:12] LABS: Testosterone,Total 517 ng/dL (264-916)
== END ==
LOC: LAB.DROPOF 16:32
PROVIDERS: PCP Internal Medicine; Visit Provider Internal Medicine
DX: E29.1 Testicular hypofunction (principal)
CPT/HCPCS: 84403

== ENCOUNTER → 2023-05-30 11:10 | Outpatient (CLI) | payer BC, SELFPAY ==
[2023-05-30 11:29] LABS: Basophils # 0.1 K/mm3 (0-0.2); Basophils % 0.8 % (0.1-2.0); Eosinophils # 0.2 K/mm3 (0.0-0.4); Eosinophils % 3.3 % (0.1-12.0); Hematocrit 45.8 % (42.0-52.0); Hemoglobin 14.8 g/dL (14.1-18.0); Lymphocytes # 2.4 K/mm3 (0.7-4.5); Lymphocytes % 40.6 % (10-50); Mean Corpuscular HGB Conc 32.3 g/dL (31.8-35.4); Mean Corpuscular Hemoglobin 29.2 pg (27.0-31.2); Mean Corpuscular Volume 90.5 fl (80-94); Mean Platelet Volume 7.9 fl (7.4-10.4); Monocytes # 0.4 K/mm3 (0.1-1.0); Monocytes % 6.2 % (1.7-9.3); Neutrophils # 2.9 K/mm3 (1.8-7.8); Platelet Count 297 K/mm3 (142-424); Red Blood Count 5.06 M/mm3 (4.60-6.20); Red Cell Distribution Width 13.4 % (11.5-17.5); White Blood Count 5.9 K/mm3 (4.8-10.8)
[2023-05-30 11:48] LABS: Chloride 100 mmol/L (98-107); Sodium 138 mmol/L (136-145)
[2023-05-30 11:51] LABS: Bilirubin,Unconjugated 0.2 mg/dL (0.0-1.1)
[2023-05-30 11:52] LABS: Albumin Level 4.2 g/dl (3.5-5.0); Calcium 9.8 mg/dl (8.4-10.2); Glucose 95 mg/dl (74-100); HDL Cholesterol 56 mg/dl (40-60); Total Protein,Serum 6.8 g/dl (6.3-8.2)
[2023-05-30 11:54] LABS: Alkaline Phosphatase 66 U/L (38-126); Carbon Dioxide 31 mmol/L (22.0-30.0)
[2023-05-30 12:07] LABS: Free T4 (Free Thyroxine) 0.92 ng/dl (0.78-2.19)
[2023-05-30 12:33] LABS: Alanine Aminotransferase 23 U/L (12-78); Aspartate Amino Transferase 25 U/L (17-59); Bilirubin,Indirect 0.3 mg/dL (0.0-0.9); Bilirubin,Total 0.3 mg/dl (0.2-1.3); Blood Urea Nitrogen 16 mg/dl (9-20); Cholesterol 223 mg/dl (140-200); Estimated Glomerular Filt Rate 94 ml/min (>60); GFR (African American) 114 ML/MIN (>60); Triglycerides 142 mg/dl (30-150); VLDL Cholesterol 28 mg/dL (0-40)
[2023-05-30 12:44] LABS: Direct LDL Cholesterol 120.46 mg/dL (100-129)
[2023-05-30 13:05] LABS: Thyroid Stimulating Hormone 0.38 uIU/mL (0.465-4.68)
== END ==
LOC: LAB 11:10
PROVIDERS: PCP Internal Medicine; Visit Provider Nurse Practitioner
DX: R07.89 Other chest pain (principal); R00.2 Palpitations; I11.9 Hypertensive heart disease without heart failure; Z79.899 Other long term (current) drug therapy
CPT/HCPCS: 36415; 80048; 80061; 80076; 84439; 84443; 85025

== ENCOUNTER 2023-06-10 06:20 | Outpatient (CLI) | payer BC, SELFPAY ==
[2023-06-10] VITALS (7 sets, daily range): BP systolic 100–129; BP diastolic 61–72; PULSE 50–62; RESP 16–18; TEMP 36.2–36.3; O2SAT 98–100; BMI 28.7
--- NOTE | 2023-06-10 07:11 | PC.NURSE ---
HR is in low 60's, metoprolol 25mg po given @ 0703 per standing order.
--- NOTE | 2023-06-10 08:25 | PC.NURSE ---
Pt arrived to post-op, VSS, alert and oriented. No C/O at this time. Up in recliner.
--- NOTE | 2023-06-10 09:05 | PC.NURSE ---
Pt VSS, no C/O. Pt discharged.
== END 2023-06-10 09:16 | disposition home or self-care (01) ==
PROVIDERS: PCP Internal Medicine; Visit Provider Nurse Practitioner
DX: R00.2 Palpitations (principal); R07.89 Other chest pain
CPT/HCPCS: 75574; Q9967

== ENCOUNTER 2023-11-25 16:58 | Outpatient (CLI) | payer BC, SELFPAY ==
[2023-11-25 17:29] LABS: Basophils % 0.5 % (0.1-2.0); Eosinophils # 0.1 K/mm3 (0.0-0.4); Hematocrit 43.6 % (42.0-52.0); Hemoglobin 14.7 g/dL (14.1-18.0); Lymphocytes # 2.4 K/mm3 (0.7-4.5); Lymphocytes % 38.2 % (10-50); Mean Corpuscular HGB Conc 33.7 g/dL (31.8-35.4); Mean Corpuscular Hemoglobin 29.9 pg (27.0-31.2); Mean Corpuscular Volume 88.7 fl (80-94); Mean Platelet Volume 8.2 fl (7.4-10.4); Monocytes # 0.3 K/mm3 (0.1-1.0); Monocytes % 4.3 % (1.7-9.3); Neutrophils # 3.5 K/mm3 (1.8-7.8); Neutrophils % 54.9 % (37.0-80.0); Platelet Count 277 K/mm3 (142-424); Red Blood Count 4.91 M/mm3 (4.60-6.20); Red Cell Distribution Width 13.9 % (11.5-17.5); White Blood Count 6.3 K/mm3 (4.8-10.8)
[2023-11-25 17:53] LABS: Chol/HDL Ratio 4.2 (1-3.5); Cholesterol 248 mg/dl (140-200); HDL Cholesterol 59 mg/dl (40-60); Triglycerides 56 mg/dl (30-150); VLDL Cholesterol 11 mg/dL (0-40)
[2023-11-25 18:04] LABS: Direct LDL Cholesterol 136.98 mg/dL (100-129)
[2023-11-25 18:22] LABS: Thyroid Stimulating Hormone 0.29 uIU/mL (0.465-4.68)
[2023-11-26 08:18] LABS: Testosterone,Total 288 ng/dL (264-916); Triiodothyronine (T3) Free 3.3 pg/mL (2.0-4.4)
== END 2023-11-25 23:59 ==
LOC: LAB.DROPOF 16:58
PROVIDERS: PCP Internal Medicine; Visit Provider Internal Medicine
DX: R00.2 Palpitations (principal); E78.5 Hyperlipidemia, unspecified; K21.9 Gastro-esophageal reflux disease without esophagitis; M45.6 Ankylosing spondylitis lumbar region; E29.1 Testicular hypofunction
CPT/HCPCS: 80061; 84403; 84439; 84443; 84481; 85025

== ENCOUNTER 2023-11-26 23:52 | Emergency (ER) | payer BC, SELFPAY ==
[2023-11-26 23:54] VITALS: BP 149/88; PULSE 87; RESP 20; TEMP 36.8; O2SAT 98; BMI 29.4
--- NOTE | 2023-11-26 23:54 | ECG_ITS ---
APPROVED REPORT Exam: Resting ECG HR:77 bpm ECG Measurements Heart Rate 77 AXES OR 155 P 73 QRSd 113 QRS 80 QT 358 T 61 QTc 390 Conclusion SINUS RHYTHM MODERATE INTRAVENTRICULAR CONDUCTION DELAY [110+ ms QRS DURATION] BORDERLINE ECG UNCONFIRMED REPORT Electronically signed by : Cricket Matthews MD 11/27/2023 20:59:00
[2023-11-27] VITALS: BP 150/89; PULSE 73; RESP 17; O2SAT 100
--- NOTE | 2023-11-27 00:08 | XR_ITS ---
PROCEDURE INFORMATION: Exam: XR Chest Exam date and time: 11/27/2023 12:07 AM Age: 38 years old Clinical indication: Pain; Chest pressure; Additional info: Chest pain, palpitations TECHNIQUE: Imaging protocol: Radiologic exam of the chest. Views: 2 views. Total images: 2 COMPARISON: CR XR SHOULDER LT MIN 2V 11/02/2020 8:14 AM FINDINGS: Tubes, catheters and devices: EKG leads are present. Lungs: Calcified right upper lobe granuloma. No acute infiltrate, airspace consolidation or vascular congestion. No interstitial edema. Pleural spaces: Unremarkable. No pleural effusion. No pneumothorax. Heart/Mediastinum: Unremarkable. No cardiomegaly. No mediastinal widening or hilar enlargement. Bones/joints: Unremarkable. IMPRESSION: No radiographically acute cardiopulmonary process.
--- NOTE | 2023-11-27 00:10 | HMH.EDCP ---
Discharge Plan Disposition Patient Disposition: Home, Self-Care Condition: Good Prescriptions Prescriptions: No Action testosterone cypionate 200 mg/mL oil 200 mg IM QMONTH Humira(CF) 40 mg/0.4 mL syringe kit 40 mg SQ DAILY amoxicillin 500 mg capsule 1,500 mg PO Q12H Patient Comments: TAKE 3 CAPSULES BY MOUTH EVERY 12 HOURS FOR 10 DAYS Referrals Follow up/Referrals: Everardo Key MD [Staff Physician] - See instructions Provider,MD Cristela [Primary Care Provider] - See instructions Activity Restrictions/Add. Instructions Additional Instructions/Restrictions: You were evaluated in the emergency department today. Please follow-up closely with cardiology. Return to the emergency department for new or worsening symptoms. Clinical Impressions Clinical Impression: Palpitations, PVC (premature ventricular contraction) Instructions Patient Instructions: Premature Ventricular Beats, DI for Atypical Chest Pain Discharge ED Provider: Gemini Reynoso HPI General Chief Complaint: Chest Pain Stated Complaint: Chest pain Time Seen by Provider: 11/26/23 23:57 Mode of Arrival: Ambulatory Source of Information: Patient Limitations: No Limitations Description of Symptoms (Recalled from ER Triage Doc. by RN): Patient presents to ED with chest pain that started an hour ago. Patient also states it feels like his heart is skipping a beat. Patient denies any other symptoms. History of Present Illness HPI narrative: This patient is a 38-year-old male who denies significant past medical history presenting to the emergency department for evaluation with concern for chest pain and palpitations. Patient states that he first noted symptoms on Saturday, but they resolved so he did not think much of it. He describes as feeling of lump in his chest and like his heart skipped a beat. He would notice an unusual heartbeat when he checked his pulse when this happened. He followed up with his primary care provider for routine checkup yesterday, and everything was fine. Tonight after giving his daughter a bath and going to get ready for bed, he experienced this again and it was more significant. He also noted that he was having some chest pain going down his left arm. Given this, he decided to come in for further evaluation. He denies any fevers, chills, cough, congestion, shortness of breath, abdominal pain, nausea, vomiting, or other concerns. He denies any history of heart problems. He was evaluated last year in May/June by cardiology and had a reassuring cardiac workup, including negative stress test. He denies any changes in diet, exercise, sleep patterns, caffeine intake, medications, or other concerns. 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 Related Data Home Medications Medication Instructions Recorded Confirmed testosterone cypionate 200 mg/mL 200 mg IM QMONTH hormone 01/25/22 07/04/23 intramuscular oil replacement adalimumab 40 mg/0.4 mL 40 mg SQ DAILY anklyosis 02/27/22 07/04/23 subcutaneous syringe kit spondylitis (Humira(CF)) amoxicillin 500 mg capsule 1,500 mg PO Q12H Sinus Infection 05/30/23 07/04/23 Allergies Allergy/AdvReac Type Severity Reaction Status Date / Time No Known Allergies Allergy Verified 07/04/23 10:31 [facility] Disclaimer: The information contained in this section may have been updated after the patient was seen, as this information can be updated by other users. Medical History History of chest pain Surgical History History of tonsillectomy History of umbilical hernia repair Family History Other Family history of COPD (chronic obstructive pulmonary disease) Family history of asthma Social History Smoking Status: Current every day smoker tobacco type: smokeless tobacco alcohol intake: current current occupational status: other Travel in the last 8 weeks: None ROS Obtained: Yes All systems reviewed & no additional complaints except as documented Physical Exam General General appearance: alert and in no apparent distress Head Head exam: atraumatic and normocephalic Eye Eye exam: Present normal appearance, PERRL and EOMI ENT ENT exam: Present normal exam, normal oropharynx, mucous membranes moist and normal external ear exam Neck Neck exam: Present normal inspection, full ROM and trachea midline; Absent tenderness Chest Chest inspection: Present normal inspection and symmetric chest wall rise; Absent tenderness Respiratory Respiratory exam: Present normal lung sounds bilaterally; Absent respiratory distress, wheezes, stridor or accessory muscle use Cardiovascular Cardiovascular exam: Present regular rate, normal rhythm and other (rare PVC's on monitor) Abdominal Exam Abdominal exam: Present soft; Absent distention, tenderness or guarding Extremities Exam Extremities exam: Present normal inspection, full ROM and normal capillary refill; Absent tenderness or edema Back Exam Back exam: Present normal inspection and full ROM; Absent tenderness Neurological Exam Neurological exam: Present alert, oriented X3, CN II-XII intact and normal gait; Absent motor sensory deficit Psychiatric Psychiatric exam: Present normal affect and normal mood Skin Skin exam: Present warm and dry HEART Score HEART Score HEART Score assessment performed?: Yes History (anamnesis): Slightly suspicious ECG: Normal Age: <45 years Risk factors: No known risk factors Troponin: </= normal limit HEART Score: 0 Critical Care Critical Care Time Critical Care Time: No Medical Decision Making Bobby Inquiry Pt receiving controlled substance: No Vital Signs Vital Signs: 11/26/23 23:54 11/27/23 00:00 11/27/23 00:30 Temperature 98.3 F Temperature Source Oral Pulse Rate 73 Pulse Rate [Right Radial] 87 Respiratory Rate 20 17 16 Blood Pressure 150/89 H 127/87 Blood Pressure [Right Arm] 149/88 H Blood Pressure Mean [Right Arm] 108 Blood Pressure Source [Right Arm] Automatic Cuff Blood Pressure Position [Right Arm] Supine 02 Sat by Pulse Oximetry 98 100 Oxygen Delivery Method Room Air Lab Data Labs: Lab Results 11/26/23 23:56: WBC 6.4, RBC 4.67, Hgb 14.2, Hct 41.4 L, MCV 88.6, MCH 30.4, MCHC 34.3, RDW 14.0, Plt Count 254, MPV 7.7, Neut % (Auto) 40.2, Lymph % (Auto) 51.7 H, Towner % (Auto) 4.7, Eos % (Auto) 2.7, Baso % (Auto) 0.7, Neut # (Auto) 2.6, Lymph # (Auto) 3.3, Towner # (Auto) 0.3, Eos # (Auto) 0.2, Baso # (Auto) 0.1, Sodium 139, Potassium 3.9, Chloride 104, Carbon Dioxide 32 H, Anion Gap 6.9, BUN 16, Creatinine 0.90, Estimated Creat Clear 146, Estimated GFR 94, Est GFR ( Amer) 114, Glucose 98, Calcium 9.8, Magnesium 2.0, Total Bilirubin 0.4, AST 35, ALT 32, Alkaline Phosphatase 69, Troponin I < 0.01, Total Protein 7.2, Albumin 4.4, Globulin 2.8, Albumin/Globulin Ratio 1.6, TSH 1.07 D, Thyroxine (T4) 8.9 11/26/23 23:56 11/26/23 23:56 Response Orders (Tests/Meds): ORDERS Category Date Time Status XR chest 2V Stat Exams 11/27/23 00:08 Completed CMP [Comprehensive Metabolic Panel] Stat Lab 11/27/23 00:00 Completed Complete Blood Count Auto Diff Stat Lab 11/27/23 00:00 Results Magnesium Stat Lab 11/27/23 00:00 Completed T4 (Thyroxine) Stat Lab 11/27/23 00:00 Completed Thyroid Stimulating Hormone Stat Lab 11/27/23 00:00 Completed Troponin I Q3H Lab 11/27/23 03:15 Ordered Troponin I Q3H Lab 11/27/23 06:15 Ordered Troponin I Stat Lab 11/27/23 00:00 Completed ECG initial Besson Routine Y 11/26/23 23:54 Completed ECG Data Tracing #1: Attestation: I reviewed this ECG and interpreted as documented below: ECG Narrative: Normal sinus rhythm with a ventricular rate of 77 bpm. Interventricular conduction delay noted. No acute ST elevations concerning for ischemia. No changes from prior EKG. ECG initial impression date: 11/27/23 ECG initial impression time: 23:55 MDM Narrative Medical Decision Narrative: In summary, this patient is a 38-year-old male presenting to the Emergency Department for evaluation of chest pain and palpitations. Differential diagnoses considered include but are not limited to ACS, dysrhythmia, electrolyte derangements, GERD, thyroid abnormality, anxiety. Ruling out the most morbid conditions drove assessment. On exam, the patient is well-appearing with normal vital signs on cardiac telemetry. He does have the occasional PVC on cardiac monitoring. I feel his symptoms he describes are consistent with PVCs. Workup included CBC, CMP, troponin, TSH, T4, magnesium, chest x-ray, and EKG. EKG is reassuring without significant changes from prior EKG and no acute ischemic change. No notable dysrhythmia. I independently interpreted x-ray prior to the radiologist read and noted consolidation, cardiomegaly, or other concerning. Please see their read for final interpretation. Labs were obtained that demonstrated negative troponin and no other acutely concerning abnormality. On reassessment, patient is resting company without significant symptoms. I advised him that we could check a second troponin given the pain that he was having, however he states that he feels fine to go home. I did advise that he follow-up closely with cardiology given very strict return precautions. I feel he is likely having symptomatic PVCs. He was discharged in stable condition after all questions were answered.
--- NOTE | 2023-11-27 00:16 | PC.NURSE ---
patient gone to RAD at this time.
--- NOTE | 2023-11-27 00:19 | PC.NURSE ---
patient back in room at this time.
[2023-11-27 00:28] LABS: Basophils # 0.1 K/mm3 (0-0.2); Basophils % 0.7 % (0.1-2.0); Eosinophils # 0.2 K/mm3 (0.0-0.4); Eosinophils % 2.7 % (0.1-12.0); Hematocrit 41.4 % (42.0-52.0); Hemoglobin 14.2 g/dL (14.1-18.0); Lymphocytes # 3.3 K/mm3 (0.7-4.5); Lymphocytes % 51.7 % (10-50); Mean Corpuscular HGB Conc 34.3 g/dL (31.8-35.4); Mean Corpuscular Hemoglobin 30.4 pg (27.0-31.2); Mean Corpuscular Volume 88.6 fl (80-94); Mean Platelet Volume 7.7 fl (7.4-10.4); Monocytes # 0.3 K/mm3 (0.1-1.0); Monocytes % 4.7 % (1.7-9.3); Neutrophils # 2.6 K/mm3 (1.8-7.8); Neutrophils % 40.2 % (37.0-80.0); Platelet Count 254 K/mm3 (142-424); Red Blood Count 4.67 M/mm3 (4.60-6.20); White Blood Count 6.4 K/mm3 (4.8-10.8)
[2023-11-27 00:29] LABS: MANUAL DIFFERENTIAL MANUAL DIFFERENTIAL (MANUAL DIFF)
[2023-11-27 00:30] VITALS: BP 127/87; RESP 16
[2023-11-27 00:31] LABS: Alanine Aminotransferase 32 U/L (12-78); Albumin Level 4.4 g/dl (3.5-5.0); Albumin/Globulin Ratio 1.6 (1.1-1.8); Alkaline Phosphatase 69 U/L (38-126); Anion Gap 6.9 mEq/L (5-15); Aspartate Amino Transferase 35 U/L (17-59); Bilirubin,Total 0.4 mg/dl (0.2-1.3); Blood Urea Nitrogen 16 mg/dl (9-20); Calcium 9.8 mg/dl (8.4-10.2); Carbon Dioxide 32 mmol/L (22.0-30.0); Chloride 104 mmol/L (98-107); Creatinine Clearance Estimated 146 mL/min (50-200); Estimated Glomerular Filt Rate 94 ml/min (>60); GFR (African American) 114 ML/MIN (>60); Globulin 2.8 g/dL (1.3-3.2); Glucose 98 mg/dl (74-100); Potassium 3.9 mmoL/L (3.5-5.1); Sodium 139 mmol/L (136-145); Total Protein,Serum 7.2 g/dl (6.3-8.2)
[2023-11-27 00:48] LABS: T4 (Thyroxine) 8.9 ug/dl (5.53-11.0)
[2023-11-27 00:55] LABS: Troponin I < 0.01 ng/ml (0.00-0.034)
[2023-11-27 01:00] VITALS: PULSE 70
[2023-11-27 01:02] LABS: Thyroid Stimulating Hormone 1.07 uIU/mL (0.465-4.68)
[2023-11-27 01:11] VITALS: BP 122/84; PULSE 68; RESP 20; TEMP 36.8; O2SAT 97
[2023-11-27 01:50] LABS: Eosinophils % 1 % (0-3); Lymphocytes % 47 % (10-50); Neutrophils % 48 % (42-76); Total Cells Counted 100
[2023-11-27 01:53] LABS: Platelet Estimate Normal; RBC Morphology Normal
== END 2023-11-27 01:15 | disposition home or self-care (01) ==
PROVIDERS: Emergency Provider Emergency Medicine; PCP Internal Medicine
DX: R07.89 Other chest pain (principal); I49.3 Ventricular premature depolarization; R00.2 Palpitations; F17.290 Nicotine dependence, other tobacco product, uncomplicated
CPT/HCPCS: 71046; 80053; 83735; 84436; 84443; 84484; 85007; 85025; 93005; 99284

== ENCOUNTER → 2023-12-11 17:19 | Day surgery (SDC) | payer BC, SELFPAY ==
--- NOTE | 2023-12-11 10:40 | CT_ITS ---
FINAL REPORT TECHNIQUE: Thin section axial images were obtained from the lung bases to the pubic symphysis without IV contrast. Coronal reconstruction images were obtained from the axial data. Exam was performed using dose reduction technique. CLINICAL HISTORY: RIGHT LOWER QUAD PAIN COMPARISON: None FINDINGS: There are no obstructing renal or ureteral stones. There is no hydronephrosis or perinephric stranding. The gallbladder is present. The remaining unenhanced solid abdominal organs are unremarkable. There is no evidence of small bowel obstruction. The appendix is dilated to 16 mm. There is surrounding abnormal attenuation. Findings are consistent with acute appendicitis. There is no evidence of perforation or abscess. There are mildly enlarged lymph nodes in the right lower quadrant favored to be reactive. There is no free fluid. No acute osseous abnormality is identified. IMPRESSION: Acute appendicitis. Reviewed, Interpreted and Dictated by Evelia Diaz MD Transcribed by Beatrice Zheng Authenticated and [facility]
[2023-12-11 15:36] LABS: Basophils # 0.1 K/mm3 (0-0.2); Basophils % 0.4 % (0.1-2.0); Eosinophils # 0.2 K/mm3 (0.0-0.4); Eosinophils % 1.2 % (0.1-12.0); Hematocrit 45.4 % (42.0-52.0); Hemoglobin 14.7 g/dL (14.1-18.0); Lymphocytes # 3.1 K/mm3 (0.7-4.5); Lymphocytes % 22.9 % (10-50); Mean Corpuscular HGB Conc 32.3 g/dL (31.8-35.4); Mean Corpuscular Hemoglobin 29.8 pg (27.0-31.2); Mean Platelet Volume 7.8 fl (7.4-10.4); Monocytes # 0.6 K/mm3 (0.1-1.0); Monocytes % 4.3 % (1.7-9.3); Neutrophils # 9.6 K/mm3 (1.8-7.8); Neutrophils % 71.2 % (37.0-80.0); Platelet Count 225 K/mm3 (142-424); Red Blood Count 4.93 M/mm3 (4.60-6.20); Red Cell Distribution Width 13.8 % (11.5-17.5); White Blood Count 13.5 K/mm3 (4.8-10.8)
--- NOTE | 2023-12-11 17:36 | P.OP_ITS ---
Date of procedure: 12/11/23 Pre-op Diagnosis:: Appendicitis Post-op Diagnosis:: Suppurative appendicitis Procedure performed:: Laparoscopic appendectomy Surgeon:: Gary Tyler MD MECHANICAL CAR CHECKER:: Boston Mireles Anesthesia: GETA Estimated blood loss (mL): 15 Operative findings:: Severe inflammation of the mid/distal appendix Suppurative changes of mid/distal appendix No obvious perforation Operative note:: After informed consent was obtained the patient was taken to the operating room and placed in the supine position. General anesthesia was induced and his abdomen was prepped and draped in a sterile fashion. After infiltration local anesthetic a small stab incision was made in the left upper quadrant. A Veress needle was placed in position. The abdomen was insufflated. After infiltration with local anesthetic a 5 mm optical trocar was placed in the suprapubic position. Secondary to multiple prior umbilical hernia repairs, the decision was made to proceed with supraumbilical/epigastric placement for the 12 mm trocar. Significant adhesions to the anterior abdominal wall in/around the umbilicus were confirmed. After infiltration local anesthetic an incision was made in the epigastric/supraumbilical region. A 12 mm trocar was placed in position under direct visualization. An additional 5 mm trocar was placed in the left mid flank. The appendix was severely inflamed and enlarged. As the appendix was carefully elevated the mesoappendix was taken with harmonic jessica. Significant suppurative changes were noted throughout the mid/distal appendix. An Endopath 45 stapling device was used to transect the appendix at its base. The appendix was placed in a retrieval bag and removed through the epigastric trocar site. The right lower quadrant was thoroughly irrigated. No sign of injury or bleeding noted. No pockets of purulence were seen. Fascia at the epigastric trocar site was reapproximated using the Neoclose device. Pneumoperitoneum was released as the remaining trocars were removed. All wounds were irrigated and skin was closed with 4-0 Monocryl in a mattress fashion to facilitate hemostasis. Dressings were applied and the patient was transferred to recovery in stable condition after extubation. Condition: stable Disposition: PACU Specimens:: Appendix Complications:: No immediate
[2023-12-11 17:48] VITALS: TEMP 43
[2023-12-11 18:16] LABS: Microscopic,Cath URINE MICROSCOPIC (MICROSCOPIC)
[2023-12-11 19:12] LABS: Appearance,Urine/Cath CLEAR (Clear); Bilirubin,Cath Negative (Negative); Blood, Urine/Cath Negative (Negative); Color,Urine/Cath YELLOW (Yellow); Glucose,Urine/Cath (UA) Negative (Negative); Ketones,Urine/Cath Negative (Negative); Leukocyte Esterase,Cath Negative (Negative); Nitrate,Cath Negative (Negative); Protein,Urine/Cath Negative (Negative); Urobilinogen,Cath 0.2 EU/dl (0.2)
== END | disposition home or self-care (01) ==
LOC: RAD 17:19 → OR 17:21
PROVIDERS: PCP Internal Medicine; Visit Provider Surgery
PROC: 0DTJ4ZZ Resection of Appendix, Percutaneous Endoscopic Approach (ICD-10-PCS; CPT 44970; principal; 2023-12-11 14:50)
DX: K35.80 Unspecified acute appendicitis (principal)
CPT/HCPCS: 44970; 74176; 81001; 85025; 96374; J2405; J2710

== ENCOUNTER 2024-10-14 12:31 | Emergency (ER) | payer BC, SELFPAY ==
[2024-10-14 13:39] VITALS: BP 130/74; PULSE 88; RESP 18; TEMP 37.2; O2SAT 99; BMI 32.3
--- NOTE | 2024-10-14 13:46 | EXP.UTC ---
Discharge Plan Disposition Patient Disposition: Home, Self-Care Condition: Good Prescriptions Prescriptions: New benzonatate 100 mg capsule 100 mg PO TIDP PRN (Reason: Cough) Qty: 30 0RF methylprednisolone 4 mg Tablets,Dose Pack 4 mg PO DIRECTED 6 Days Qty: 21 0RF Rx Instructions: Take 1 pack as directed for 6 days amoxicillin-pot clavulanate 875-125 mg Tablet 1 tab PO Q12H Qty: 20 0RF No Action bisoprolol fumarate 5 mg tablet 5 mg PO DAILY Humira(CF) 40 mg/0.4 mL syringe kit 40 mg SQ DAILY triamcinolone acetonide 0.1 % cream 1 applic topical BID Qty: 30 0RF testosterone cypionate 200 mg/mL oil 200 mg IM QMONTH Qty: 1 3RF difluprednate 0.05 % drops 1 drp ophthalmic (eye) QID 7 Days Qty: 5 0RF Referrals Follow up/Referrals: Yazan Wayne MD [Primary Care Provider] - See instructions Activity Restrictions/Add. Instructions Additional Instructions/Restrictions: Drink plenty of fluids. Take tylenol or ibuprofen for pain or fever. Take the medications as directed. Follow up with your regular doctor. GO TO THE ER FOR ANY WORSENING SYMPTOMS Clinical Impressions Clinical Impression: Acute sinusitis, Bronchitis Instructions Patient Instructions: Sinusitis, DI for Sinusitis Print Language Print Language: Vietnamese Discharge ED Provider: Олег Pantoja [facility] HPI General Stated complaint: congestion, cough, headache Mode of Arrival: Ambulatory Source of Information: Patient Time Seen by Provider: 10/14/24 13:41 Description of Symptoms (Recalled from Triage Doc. by RN): MASTERSON, COUGH, CONGESTION, SINUS PRESSURE, RUNNY NOSE HEENT Symptoms (Recalled from RN notes): Yes Resp Symptoms (Recalled from RN notes): Yes Skin Symptoms (Recalled from RN notes): No MS Symptoms (Recalled from RN notes): No Functional Status (Recalled from RN notes): WNL Related Data Home Medications ?Medication ?Instructions ?Recorded ?Confirmed adalimumab 40 mg/0.4 mL 40 mg SQ DAILY anklyosis 02/27/22 10/14/24 subcutaneous syringe kit spondylitis (Humira(CF)) bisoprolol fumarate 5 mg tablet 5 mg PO DAILY 12/11/23 10/14/24 Previous Rx's ?Medication ?Instructions ?Recorded triamcinolone acetonide 0.1 % 1 applic topical BID #30 grams 04/17/24 topical cream testosterone cypionate 200 mg/mL 200 mg IM QMONTH #1 mL 05/12/24 intramuscular oil difluprednate 0.05 % eye drops 1 drp ophthalmic (eye) QID 7 days 06/19/24 #5 mL amoxicillin 875 mg-potassium 1 tab PO Q12H #20 tabs 10/14/24 clavulanate 125 mg tablet benzonatate 100 mg capsule 100 mg PO TIDP PRN Cough #30 caps 10/14/24 methylprednisolone 4 mg tablets in 4 mg PO DIRECTED 6 days #21 tabs 10/14/24 a dose pack Allergies Allergy/AdvReac Type Severity Reaction Status Date / Time No Known Allergies Allergy Verified 12/18/23 09:01 Worker's Comp Is this a Worker's Comp case?: No [facility] Disclaimer: The information contained in this section may have been updated after the patient was seen, as this information can be updated by other users. Medical History (Updated 10/14/24 @ 14:03 by Олег Pantoja APRN) Acute appendicitis History of chest pain Surgical History (Updated 12/18/23 @ 09:02 by JEFFRY Barnes) History of appendectomy History of umbilical hernia repair History of tonsillectomy Family History Other Family history of COPD (chronic obstructive pulmonary disease) Family history of asthma Social History Smoking Status: Current every day smoker tobacco type: smokeless tobacco alcohol intake: current substance use type: denies use current occupational status: other Travel in the last 8 weeks: None Have you lived/traveled outside US in past 30 days?: No Contact w/someone who lives/traveled outside US past 30 days?: No Exposure to someone with infectious disease in past 14 days?: No Do you have a fever (greater than 100.4 F or 38 C)?: No Have you tested positive for COVID-19: No Exposed to someone with COVID-19 in past 14 days?: No Do you have a sore throat?: No Do you have a cough?: Yes Do you have any weakness?: No Do you have any diarrhea?: No Are you experiencing any unusual bleeding?: No Do you have any muscle aches/pain?: No Do you have any abdominal pain?: No Are you experiencing loss of taste or smell?: No ROS Obtained: Yes All systems reviewed & no additional complaints except as documented Constitutional Constitutional: Reports poor appetite Eyes Eyes: Reports system reviewed and no additional complaints, except as documented ENT Ears, Nose, Mouth, and Throat: Reports as per HPI Cardiovascular Cardiovascular: Reports system reviewed and no additional complaints, except as documented and Denies chest pain Respiratory Respiratory: Denies shortness of breath, Reports chest congestion, Reports cough, Denies stridor and Denies wheezing Gastrointestinal Gastrointestingal: Reports system reviewed and no additional complaints, except as documented; Denies abdominal pain, diarrhea or vomiting Musculoskeletal Musculoskeletal: Reports system reviewed and no additional complaints, except as documented and Denies arthralgias Integumentary/Breasts Skin/Breast: Reports system reviewed and no additional complaints, except as documented and Denies rash Neurologic Neurologic: Denies paresthesias Allergic/Immunologic Allergic/Immunologic: Denies wheezing Physical Exam General General appearance: alert and in no apparent distress Head Head exam: atraumatic, normocephalic and normal inspection Eye Eye exam: Present normal appearance, PERRL and EOMI ENT ENT exam: Present normal exam, normal oropharynx, mucous membranes moist, TM's normal bilaterally and normal external ear exam Neck Neck exam: Present normal inspection, full ROM and trachea midline; Absent meningismus or lymphadenopathy Chest Chest inspection: Present normal inspection and symmetric chest wall rise; Absent tenderness Respiratory Respiratory exam: Present normal lung sounds bilaterally; Absent respiratory distress Cardiovascular Cardiovascular exam: Present regular rate and normal rhythm; Absent JVD Abdominal Exam Abdominal exam: Present soft and normal bowel sounds; Absent distention, tenderness or guarding Extremities Exam Extremities exam: Present normal inspection, full ROM and normal capillary refill; Absent calf tenderness Back Exam Back exam: Present normal inspection; Absent tenderness Neurological Exam Neurological exam: Present alert and oriented X3 Psychiatric Psychiatric exam: Present normal affect and normal mood Skin Skin exam: Present warm, dry, intact and normal color Lymphatic Lymphatic Findings: no adenopathy Medical Decision Making Medical Records Medical records reviewed: No I reviewed the patient's medical records. Screening: Per USPSTF and CDC recommendations, given the prevalence of disease in our region, it is our hospital?s policy to screen for HIV and viral Hepatitis for all patients aged 18 and over and those with ongoing risk factors. Bobby Inquiry Pt receiving controlled substance: No Vital Signs: 10/14/24 13:39 Temperature 99.0 F Temperature Source Oral Pulse Rate [Left Brachial] 88 Respiratory Rate 18 Blood Pressure [Left Arm] 130/74 Blood Pressure Mean [Left Arm] 92 02 Sat by Pulse Oximetry 99 Lab Data Lab results reviewed: Yes I reviewed the patient's lab results.
[2024-10-14 14:06] VITALS: BP 130/74; PULSE 88; RESP 18; TEMP 37.2
== END 2024-10-14 14:07 | disposition home or self-care (01) ==
PROVIDERS: Emergency Provider Nurse Practitioner Family; PCP Internal Medicine
DX: J01.90 Acute sinusitis, unspecified (principal); J20.9 Acute bronchitis, unspecified; R09.81 Nasal congestion; R05.9 Cough, unspecified; R51.9 Headache, unspecified; R63.8 Other symptoms and signs concerning food and fluid intake
CPT/HCPCS: 99212; G0381

== ENCOUNTER 2024-11-16 14:24 | Outpatient (CLI) | payer BC, SELFPAY ==
[2024-11-16 12:14] LABS: Microscopic, Urine URINE MICROSCOPIC (MICROSCOPIC)
[2024-11-16 12:41] LABS: Appearance,Urine CLEAR (Clear); Bilirubin,Urine Negative (Negative); Blood, Urine Negative (Negative); Color,Urine YELLOW (Yellow); Glucose,Urine (UA) Negative (Negative); Ketones,Urine Negative (Negative); Leukocyte Esterase,Urine Negative (Negative); Nitrate,Urine Negative (Negative); Protein,Urine Negative (Negative); Specific Gravity, Urine 1.025 (1.005-1.030); Urobilinogen,Urine 0.2 EU/dl (0.2)
[2024-11-16 13:11] LABS: Bacteria,Urine Trace /lpf
== END 2024-11-16 23:59 | disposition home or self-care (01) ==
LOC: LAB.DROPOF 14:25
PROVIDERS: PCP Nurse Practitioner Family; Visit Provider Nurse Practitioner Family
DX: R79.89 Other specified abnormal findings of blood chemistry (principal)
CPT/HCPCS: 81001; 87086

== ENCOUNTER 2024-11-26 09:56 | Outpatient (CLI) | payer BC, SELFPAY ==
[2024-11-26 10:41] LABS: Basophils # 0.1 K/mm3 (0-0.2); Basophils % 0.8 % (0.1-2.0); Eosinophils # 0.2 K/mm3 (0.0-0.4); Eosinophils % 2.5 % (0.1-12.0); Hematocrit 43.4 % (42.0-52.0); Hemoglobin 14.3 g/dL (14.1-18.0); Lymphocytes % 32.9 % (10-50); Mean Corpuscular HGB Conc 32.9 g/dL (31.8-35.4); Mean Corpuscular Hemoglobin 28.6 pg (27.0-31.2); Mean Corpuscular Volume 86.8 fl (80-94); Mean Platelet Volume 10.1 fl (7.4-10.4); Monocytes # 0.4 K/mm3 (0.1-1.0); Monocytes % 7.2 % (1.7-9.3); Neutrophils # 3.4 K/mm3 (1.8-7.8); Neutrophils % 56.3 % (37.0-80.0); Platelet Count 275 K/mm3 (142-424); Red Cell Distribution Width 12.8 % (11.5-17.5)
[2024-11-26 11:34] LABS: Albumin Level 4.5 g/dl (3.5-5.0); Chloride 99 mmol/L (98-107); Potassium 4.5 mmoL/L (3.5-5.1); Sodium 139 mmol/L (136-145)
[2024-11-26 11:36] LABS: Alanine Aminotransferase 40 U/L (12-78); Anion Gap 12.5 mEq/L (5-15); Aspartate Amino Transferase 33 U/L (17-59); Bilirubin,Unconjugated 0.5 mg/dL (0.0-1.1); Blood Urea Nitrogen 21 mg/dl (9-20); Carbon Dioxide 32 mmol/L (22.0-30.0); Estimated Glomerular Filt Rate 94 ml/min (>60); GFR (African American) 114 ML/MIN (>60)
[2024-11-26 11:37] LABS: Alkaline Phosphatase 56 U/L (38-126); Bilirubin,Indirect 0.4 mg/dL (0.0-0.9); Bilirubin,Total 0.4 mg/dl (0.2-1.3); Calcium 9.4 mg/dl (8.4-10.2); Chol/HDL Ratio 4.7 (1-3.5); Cholesterol 239 mg/dl (140-200); Glucose 89 mg/dl (74-100); HDL Cholesterol 51 mg/dl (40-60); Magnesium 1.8 mg/dl (1.6-2.3); Total Protein,Serum 7.2 g/dl (6.3-8.2); Triglycerides 78 mg/dl (30-150); VLDL Cholesterol 16 mg/dL (0-40)
[2024-11-26 11:48] LABS: Direct LDL Cholesterol 158.03 mg/dL (100-129)
[2024-11-26 11:53] LABS: Free T4 (Free Thyroxine) 1.04 ng/dl (0.78-2.19)
[2024-11-26 12:08] LABS: Thyroid Stimulating Hormone 0.51 uIU/mL (0.465-4.68)
== END 2024-11-26 23:59 | disposition home or self-care (01) ==
LOC: RT 09:58
PROVIDERS: PCP Nurse Practitioner Family; Visit Provider Physician Assistant
DX: R00.2 Palpitations (principal); I49.3 Ventricular premature depolarization; E78.5 Hyperlipidemia, unspecified
CPT/HCPCS: 36415; 80048; 80061; 80076; 83735; 84439; 84443; 85025; 93270

== ENCOUNTER 2024-12-08 09:11 | Outpatient (CLI) | payer BC, SELFPAY ==
--- NOTE | 2024-12-08 | CA_ITS ---
APPROVED REPORT Exam: Exercise Treadmill Technologist: Ekaterina Roldan Ht: 5 ft 11 in Wt: 232 lbs BSA: 2.25 m2 HR: 82 bpm BP: 129/75 mmHg Stress Test Details Test: Exercise stress testing was performed using a Daren protocol. HR Resting HR: 82 bpm Max Heart Rate (APMHR): 181 bpm Max HR Achieved: 154 bpm Target HR (85% APMHR): 154 bpm % of APMHR: 85 Recovery HR: 110 bpm BP Resting BP: 129.0/75.0 mmHg Max BP: 168.0/90.0 mmHg Recovery BP: 135.0/75.0 mmHg ECG Resting ECG: Normal sinus rhythm Stress EC.[address] depression Arrhythmia: PVCs Clinical Exercise duration: 9:00 min Exercise capacity: 10.1 METs Stress ECG Conclusion Patient exercised for 9 minutes. Test stopped due to mauro pain. METS 10.1 Symptoms: No chest pain Arrhythmias/Ectopy: None ST-T Changes: < 0.[address] segment depression Conclusion: Average exercise capacity No evidence of ischemia on ECG at peak stress PVCs present at rest and with exercise Electronically signed by : Tasneem Coats MD 12/09/2024 12:02:03
== END 2024-12-08 23:59 | disposition home or self-care (01) ==
LOC: RT 09:14
PROVIDERS: PCP Nurse Practitioner Family; Visit Provider Physician Assistant
DX: R53.83 Other fatigue (principal); I49.3 Ventricular premature depolarization
CPT/HCPCS: 93017; 93018

== ENCOUNTER 2025-06-24 09:43 | Outpatient (CLI) | payer BC, SELFPAY ==
--- OUTSIDE RECORDS SUMMARY | 2025-06-24 09:53 | XMS_ITS | Clinical Summary ---
Author Organization [facility] Address [address] [place] [address] Care Team Providers Care Male Infertility Specialist Name Role Phone Yazan Wayne MD Primary Care Provider [phone] Family History Medical History Relation Name Comments Hypercholesterolemia Father Lung cancer Maternal Grandfather COPD Mother Hypercholesterolemia Mother Thyroid disease Mother Relation Name Status Comments Father Maternal Grandfather Mother Social History Tobacco Use Types Packs/Day Years Used Date Smoking Tobacco: Every Day Alcohol Use Standard Drinks/Week Comments Yes 0 (1 standard drink = 0.6 oz pur e alcohol) Sex and Gender Information Value Date Recorded Sex Assigned at Not on file Legal Sex Male 6:40 PM EDT Gender Identity Not on file Sexual Orientation Not on file Last Filed Vital Signs Vital Sign Reading Time Taken Comments Blood Pressure - - Pulse - - Temperature - - Respiratory Rate - - Oxygen Saturation - - Inhaled Oxygen Concentration - - Weight 99.8 kg (220 lb) 08/10/2015 3:26 PM EDT Height 177.8 cm (5' 10 ) 08/10/2015 3:26 PM EDT Body Mass Index 31.57 08/10/2015 3:26 PM EDT Plan of Treatment Health Maintenance Due Date Last Done Comments [facility]-Depression Screening 1985 [facility]-Infant/Child/Adol SDOH Screenings 1985 [facility]-Varicella Vaccines (1 of 2 - 13+ 2-dose series) 1998 [facility]- SDOH Screenings 2003 [facility]-Adult SDOH Screenings 2003 [facility]-DTaP,Tdap,and Td Vaccine s (1 - Tdap) 2004 [facility]-Hepatitis B Vaccines (1 of 3 - 19+ 3-dose series) 2004 HPV Vaccines (1 - 3-dose SCD M series) 2012 [id number] Vaccine (1 - 20 24-25 season) 2025 [facility]-Influenza Vaccine (#1) 2025 [facility]-Zoster Vaccines (1 of 2) 2035 [facility]-HIB Vaccines Aged Out No longer e ligible based on patient's age to complete this topic [facility]-Hepatitis A Vaccines Aged Out No longer eligible based on patient's age to complete this topic [facility]-IPV Vaccines Aged Out No longer e ligible based on patient's age to complete this topic [facility]-Pneumococcal Vaccine: Pediatrics (0 to 5 Years) and At-Risk Patients (6 to 49 Years) Aged Out No long er eligible based on patient's age to complete this topic [facility]-Rotavirus Vaccines Aged Out No lo nger eligible based on patient's age to complete this topic Insurance [place] [id number] [address] Care Teams Male Infertility Specialist Relationship Specialty Start Date End Date Yazan Wayne MD [address] [facility] [address] [place] [id number] PCP - General 02/24/21
--- OUTSIDE RECORDS SUMMARY | 2025-06-24 09:53 | XMS_ITS | Encounter Summary ---
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 Name Role Phone Unavailable Primary Care Provider Unavailabl e Encounter Details Date Type Department Care Team (Late st Contact Info) Description 04/18/2020 Transcribed Document [facility] [place] [facility] [place] [address] ProviderLucian MD [address] [place] [address] Social History Tobacco Use Types Packs/Day Years Used Date Smoking Tobacco: Never Assessed Sex and Gender Information Value Date Recorded Sex Assigned at Male 04/12/2022 5:10 PM CDT Legal Sex Male 7:04 PM CDT Gender Identity Male 04/12/2022 5:10 PM CDT Sexual Orientation Not on file documented as of this encounter Miscellaneous Notes * Cerner Conversion Note - Lucian ProviderMD - 04/18/2020 2:45 PM CDT Patient: CHRISTIANO GUERRIER Age: 35 years Sex: Male : 1985 Associated Diagnoses: Nonspecific chest pain Author: LISA ROMAN MD Basic Information Time seen: Date & time 04/18/2020 14:45:00, Voice recognition / mobile sales expert technology used for some documentation in this chart in attempt to mitigate substantial inefficiencies created by this electronic health record technology. As a result, there may be some typos and/or non-sensical language introduced into the chart that either are overlooked in editing/review and/or that I am unable to correct as patient care needs require me to prioritize my attention to bedside patient care rather than electronic documentation.. . History source: Patient. Arrival mode: Private vehicle. History limitation: None. Additional information: Chief Complaint from Nursing Triage Note : Chief Complaint 04/18/2020 14:19 EDT Chief Complaint pt c/o midsternal pain +sob -n/v radiating into back . History of Present Illness Mr. Guerrier, presents via POV to room #12, alone. He reports that he's been having some intermittent left-sided breast discomfort which she describes more as a muscle pull sensation that intensifies when he moves in certain positions. Today he was at work when he started to feel lightheaded have some chest tightness. He made his way back to the shop then he started to feel worse or he started having difficulty in swallowing carpal pedal paresthesias as well as. Oral paresthesias. He drank some water and took Nexium and continued to feel poorly. He was having some palpitations and worsening shakiness. Never had anything like this before so he and his boss came here for further evaluation. The patient presents with chest pain. The onset was 2 hours ago. The course/duration of symptoms is constant and improving. Location: chest. Radiating pain: none. The character of symptoms is tightness. The degree at onset was moderate. The degree at maximum was severe. The degree at present is minimal. The exacerbating factor is none. The relieving factor is none. Risk factors consist of none. Prior episodes: none. Therapy today None. Associated symptoms: shortness of breath, anxiety, palpitations, denies nausea, denies vomiting and denies diaphoresis. Additional history: See note above.. Review of Systems Constitutional symptoms: No fever, no chills, no weakness, no fatigue, no decreased activity. Skin symptoms: No jaundice, no rash, no pruritus, no abrasions, no petechiae. Eye symptoms: Vision unchanged. ENMT symptoms: No sore throat, no nasal congestion. Respiratory symptoms: Shortness of breath, no orthopnea, no cough. Cardiovascular symptoms: Chest pain, No palpitations, Gastrointestinal symptoms: No abdominal pain, no nausea, no vomiting, no diarrhea, no constipation, no rectal bleeding. Genitourinary symptoms: No dysuria, no hematuria, no discharge, no testicular pain. Musculoskeletal symptoms: No back pain, no Muscle pain, no Joint pain. Neurologic symptoms: Dizziness, tingling, no headache, no altered level of consciousness, no numbness, no weakness. Psychiatric symptoms: Anxiety, No depression, Endocrine symptoms: No polyuria, no polydipsia. Hematologic/Lymphatic symptoms: Bleeding tendency negative, bruising tendency negative, no petechiae. Allergy/immunologic symptoms: No recurrent infections, no impaired immunity. Health Status Allergies: Allergic Reactions (Selected) No Known Medication Allergies. Medications: None. Immunizations: Unknown. Past Medical/ Family/ Social History Medical history Negative. Surgical history: Negative. Family history: Not significant. Social history: Social & Psychosocial Habits No Data Available . Physical Examination Vital Signs Vital Signs/Vital Measures 04/18/2020 14:19 EDT Systolic Blood Pressure 127 mmHg Diastolic Blood Pressure 70 mmHg Temperature Mode Fahrenheit Temperature, Fahrenheit 98.7 Deg F Clinical Temperature, C 37.1 Deg C Peripheral Pulse Rate 89 bpm Respiratory Rate 14 Breaths/Min Oxygen Saturation 99 % . Measurements 04/18/2020 14:19 EDT Height Source Measured Height Entry Format [place] Height/Length, TONGAN (ft) 5 ft Height/Length TONGAN 10 Inch CLINICALHEIGHT 177.8 cm [place] Body Weight 72.02 kg Weight Source, ED Standing scale Weight Entry Format [place] Weight [place] lb 180 lb CLINICALWEIGHT 81.82 kg Body Surface Area (BSA) 2 m2 Body Mass Index 25.9 kg/m2 HI . Oxygen saturation. General: Alert, no acute distress, well nourished, calm, cooperative, well hydrated, Ambulation status: With steady gait. Skin: Warm, dry, pink, intact, no pallor, no rash. Head: Normocephalic, atraumatic. Neck: Supple, trachea midline, no tenderness. Eye: Pupils are equal, round and reactive to light, extraocular movements are intact, normal conjunctiva. Ears, nose, mouth and throat: Oral mucosa moist. Cardiovascular: Regular rate and rhythm, No murmur, Normal peripheral perfusion, No edema. Respiratory: Lungs are clear to auscultation, respirations are non-labored, breath sounds are equal, Symmetrical chest wall expansion. Chest wall: No tenderness, No deformity. Back: Nontender, Normal range of motion. Musculoskeletal: Normal ROM, normal strength, no tenderness, no swelling. Gastrointestinal: Soft, Nontender, Non distended, Normal bowel sounds, No organomegaly. Genitourinary: Exam deferred. Neurological: Alert and oriented to person, place, time, and situation, No focal neurological deficit observed. Lymphatics: No lymphadenopathy. Psychiatric: Cooperative, appropriate mood & affect. Medical Decision Making Documents reviewed: Emergency department nurses' notes, emergency department records, prior records. Orders Include Previous Orders (Selected) Inpatient Orders Ordered Discharge: EKG: Completed BMP Basic Metabolic Panel: Blood Pressure: CBC no Diff (Hemogram): CR Chest 1 Vw Portable: Cardiac Monitoring: ED Adult Fall Risk Assessment: ED Adult Triage: ED C-SSRS: ED Clinical Reconciliation: ED ride mechanic: Normal Saline Bolus: 1,000 mL, 250 mL/Hr, IV Piggyback, 1-Time ProBNP: Pulse Oximetry Continuous Monitoring: Saline Lock Insert: Troponin I Ultra: aspirin: 324 mg, Chew, 1-Time Prescriptions Prescribed sucralfate 1 g oral tablet: 1 Tab, Oral, QID, for 14 Day(s), Dissolve one tablet in 1 ounce of water to make a similar event drink., 56 Tab, 0 Refill(s). Electrocardiogram: Time 04/18/2020 14:17:00, rate 88, normal sinus rhythm, Interpretation by Emergency Physician Interpreted by me contemporaneously with care, within normal limits, no ischemic changes. Results review: Lab results : Lab Results 04/18/2020 15:10 EDT Sodium Level 139 mmol/L Potassium Level 3.8 mmol/L Chloride Level 106 mmol/L Carbon Dioxide Level 28 mmol/L Anion Gap 9 Glucose Level 103 mg/dL Blood Urea Nitrogen 14 mg/dL Creatinine Level 1.02 mg/dL eGFR >60 mL/min/1.73m2 eGFR NonAfrican >60 mL/min/1.73m2 Bun/Creatinine 13.7 Calcium Level 8.8 mg/dL Troponin I Ultra <0.015 ng/mL ProBNP 96 pg/mL WBC 7.4 K/uL RBC 4.51 Million/uL LOW Hgb 13.4 Gram/dL LOW Hct 39.4 % LOW MCV 87.4 fL MCH 29.7 pg MCHC 34.0 Gram/dL Platelet Count 241 K/uL MPV 9.8 fL RDW 12.8 % Slide Review No . Radiology results: Radiology Results (Last 48 hours) [id number] -- 04/18/2020 14:07 CR Chest 1 Vw Portable (04/18/2020 15:53) Result: PORTABLE CHEST 04/18/2020 2:56 PMHISTORY: Left-sided chest painCOMPARISON: April 2013FINDINGS: The cardiac silhouette is normal in size. The aorticcontours are normal. The mediastinal and hilar structures areunremarkable. The lungs are clear. There is no pneumothorax. IMPRESSION: No acute cardiopulmonary process. Images reviewed, interpreted, and dictated by Dr. Adriana Daniel.Transcribed by Adam Osuna PA-C.I have personally viewed, interpreted and dictated the examination. Ihave read and agree with the above final transcribed report. . Procedure Critical care note Total time: 30 minutes spent engaged in work directly related to patient care and/ or available for direct patient care. Critical condition(s) addressed for impending deterioration include: cardiovascular. Management: bedside assessment, Interpretation (chest x-ray, electrocardiogram). Performed by: self. Heart Score Heart History: Slightly suspicious: Yes 0. EKG: Normal: Yes 0. Age: Less than or equal to 45: Yes 0. Risk Factors: No risk factors known: Yes +0. Troponin: Less than or equal to normal limit: Yes 0. Scorin to 3: 1.6% risk of MACE. Impression and Plan Diagnosis Nonspecific chest pain - Discharge, Emergency medicine, Medical Plan Condition: Improved, Stable. Disposition: Discharged Admit/Transfer/Discharge: Discharge (Order): Start: 04/18/2020 17:17 EDT, Discharge to: Home. Prescriptions: Prescription [facility]: sucralfate 1 g oral tablet (Prescribe): 1 Tab, Oral, QID, for 14 Day(s), Dissolve one tablet in 1 ounce of water to make a similar event drink., 56 Tab, 0 Refill(s). Patient was given the following educational materials: Nonspecific Chest Pain, Adult, Gastroesophageal Reflux Disease, Adult, Food Choices for Gastroesophageal Reflux Disease, Adult. Limitations: Limited activity. Follow up with: [facility] Within As needed Feel free to reach out to our Patient [facility] for assistance with any physician scheduling needs at [phone].; [facility] Within 2 to 3 days Return or go to the nearest ER for worsening uncontrolled pain, fever, dizziness, blood in your stool and or persistent vomiting. Prescriptions (1) Active sucralfate 1 g oral tablet 1 Gram = 1 Tab, Tab, QID, Oral, Dissolve one tablet in 1 ounce of water to make a similar event drink., 14 Day(s), 56 Tab, 0 refill(s), Print Requisition . Counseled: Patient, Regarding diagnosis, Regarding diagnostic results, Regarding treatment plan, Regarding prescription, Patient indicated understanding of instructions. documented in this encounter Plan of Treatment Not on file documented as of this encounter Visit Diagnoses Not on filedocumented in this encounter
--- OUTSIDE RECORDS SUMMARY | 2025-06-24 09:53 | XMS_ITS | Encounter Summary ---
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 Supervisor Name Role Phone Yazan Wayne MD Primary Care Provider [phone] Encounter Details Date Type Department Care Team (Late st Contact Info) Description 01/13/2025 Results Follow-Up [facility] [place] [address] [place] [address] Marni Beverly, BARBARA [address] [place] [address] Social History Tobacco Use Types Packs/Day Years Used Date Smoking Tobacco: Never Smokeless Tobacco: Current Alcohol Use Standard Drinks/Week Comments Never 0 (1 standard drink = 0.6 oz pur e alcohol) Sex and Gender Information Value Date Recorded Sex Assigned at Not on file Legal Sex Male 7:09 AM EDT Gender Identity Not on file Sexual Orientation Not on file documented as of this encounter Plan of Treatment Not on file documented as of this encounter Visit Diagnoses Not on filedocumented in this encounter Care Teams Route Sales Delivery Drivers Supervisor Relationship Specialty Start Date End Date Yazan Wayne MD [address] [facility] [address] [facility] [id number] PCP - General 06/06/15 documented as of this encounter
--- OUTSIDE RECORDS SUMMARY | 2025-06-24 09:53 | XMS_ITS | Encounter Summary ---
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 Director Name Role Phone Unavailable Primary Care Provider Unavailabl e Encounter Details Date Type Department Care Team (Late st Contact Info) Description 04/18/2020 Transcribed Document [facility] [place] [address] [place] [address] ProviderLucian MD [address] [place] [address] Social History Tobacco Use Types Packs/Day Years Used Date Smoking Tobacco: Never Assessed Sex and Gender Information Value Date Recorded Sex Assigned at Male 04/12/2022 5:10 PM CDT Legal Sex Male 7:04 PM CDT Gender Identity Male 04/12/2022 5:10 PM CDT Sexual Orientation Not on file documented as of this encounter Miscellaneous Notes * Cerner Conversion Note - Historical ProviderMD - 04/18/2020 5:27 PM CDT ED Discharge Entered On: 04/18/2020 17:27 EDT Performed On: 04/18/2020 17:27 EDT by AWILDA CORNELIUS designer/writer Process Patient Disposition : Discharge Personal Belongings With Patient : Yes Patient Education Completed : Yes Teaching Evaluation : Verbalizes understanding IV Discontinued : Yes AWILDA CORNELIUS RN - 04/18/2020 17:27 EDT ED Discharge Discharge To : Home without planned follow-up Mode Of Departure : Ambulatory Discharge Instructions Reviewed With, Opportunity For Questions Given : Patient Prescriptions Given to Patient : Yes Number of Prescriptions Given : 1 AWILDA CORNELIUS RN - 04/18/2020 17:27 EDT documented in this encounter Plan of Treatment Not on file documented as of this encounter Visit Diagnoses Not on filedocumented in this encounter
--- OUTSIDE RECORDS SUMMARY | 2025-06-24 09:53 | XMS_ITS | Clinical Summary ---
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
--- OUTSIDE RECORDS SUMMARY | 2025-06-24 09:53 | XMS_ITS | Encounter Summary ---
Author Organization [employer] ([place], [place], [place], [place]) Address [address] [place] [address] Care Team Providers Care Director Search Marketing Strategies Name Role Phone Unavailable Primary Care Provider Unavailabl e Encounter Details Date Type Department Care Team (Late st Contact Info) Description 04/18/2020 Transcribed Document [facility] [place] [address] [place] [address] ProviderLucian MD [address] [place] [address] Social History Tobacco Use Types [...] Conversion Note - Lucian ProviderMD - 04/18/2020 5:22 [place] [address] CHRISTIANO GUERRIER :1985 Visit Time:04/18/2020 Your Visit Summary Your Care Team Primary Provider: LISA ROMAN MD Secondary Provider: Your Diagnosis Chest pain Nonspecific chest pain Medical Information You may obtain a copy of your Emergency Department visit from Medical Records by calling the hospital phone number listed above and asking to be directed to the Medical Records Department. If you had special tests, such as EKG???s or X-rays, the interpretation of your tests given to you by the Emergency Department Physician is a preliminary report. Some fractures and illnesses fail to show up on preliminary tests. These will be reviewed again and we will call you if there are any new suggestions. If your symptoms continue notify your physician. After you leave, you should follow the instructions provided. What to do next Follow-Up Appointments Follow Up with [facility] When Within As needed Comments Feel free to reach out to our Patient [facility] for assistance with any physician scheduling needs at [phone]. Follow Up with [facility] When Within 2 to 3 days Where: [address] [place] [address] [place] [address]- Business (1) Allergies No Known Medication Allergies Immunizations This Visit No Immunizations Found Medications The home medications listed are only as accurate as the information you provided. Please continue taking all of your medications prescribed by your Primary Care Provider unless specifically told to change or discontinue the medication. Please direct any questions regarding your home medications to your Primary Care Provider. Take your medications faithfully. Do NOT skip medication. Do NOT stop taking medications without the direction of a physician. Carry a list of your medications with you at all times, and take this medication list with you to your first follow up visit. Report any side effects. Avoid herbal remedies unless discussed with your physician. As part of your treatment plan, your physician may have prescribed a limited course of a controlled substance. This medication may be given to help people with moderate or severe pain or for other medical conditions, but there are risks involved with treatment. Common side effects may include nausea, constipation, drowsiness, sweating, itching, dry mouth, and rash. More serious side effects may include cognitive and motor impairment, like problems with thinking, concentrating, alertness, and movement (e.g. slowed reflexes), and driving and operating heavy machinery can be dangerous. It is important for you to talk to your physician if you have these side effects or questions. These controlled substances can produce physical dependence and be habit-forming if taken for an extended period of time, which means that the body has gotten used to them and may experience withdrawal symptoms if they are abruptly stopped. Withdrawal symptoms can include runny nose, sweating, goose bumps, diarrhea, abdominal cramping, rapid heartbeat, difficulty sleeping, and nervousness. Please dispose of unused and medications per pharmacy guidance. Test Results Laboratory or Other Results This Visit (last charted value for your 04/18/2020 visit) Hematology 04/18/2020 3:10 PM WBC: 7.4 K/uL -- Normal range between ( 3.9 and 10.0 ) RBC: 4.51 Million/uL -- Normal range between ( 4.63 and 6.08 ) Hct: 39.4 % -- Normal range between ( 40.1 and 51.0 ) Hgb: 13.4 Gram/dL -- Normal range between ( 13.7 and 17.5 ) Platelet Count: 241 K/uL -- Normal range between ( 163 and 369 ) MCH: 29.7 pg -- Normal range between ( 25.6 and 32.2 ) MCHC: 34.0 Gram/dL -- Normal range between ( 32.3 and 36.5 ) MCV: 87.4 fL -- Normal range between ( 79.0 and 94.8 ) Slide Review: No RDW: 12.8 % -- Normal range between ( 11.6 and 14.4 ) MPV: 9.8 fL -- Normal range between ( 9.4 and 12.4 ) General Chemistry 04/18/2020 3:10 PM Creatinine Level: 1.02 mg/dL -- Normal range between ( 0.70 and 1.30 ) Sodium Level: 139 mmol/L -- Normal range between ( 136 and 146 ) Potassium Level: 3.8 mmol/L -- Normal range between ( 3.5 and 5.1 ) Chloride Level: 106 mmol/L -- Normal range between ( 102 and 112 ) Carbon Dioxide Level: 28 mmol/L -- Normal range between ( 21 and 32 ) Anion Gap: 9 -- Normal range between ( 9 and 20 ) Bun/Creatinine: 13.7 -- Normal range between ( 8.0 and 20.0 ) Calcium Level: 8.8 mg/dL -- Normal range between ( 8.5 and 10.1 ) eGFR : >60 mL/min/1.73m2 eGFR NonAfrican: >60 mL/min/1.73m2 Glucose Level: 103 mg/dL -- Normal range between ( 74 and 106 ) Blood Urea Nitrogen: 14 mg/dL -- Normal range between ( 7 and 22 ) Cardiac Specific Markers 04/18/2020 3:10 PM Troponin I Ultra: <0.015 ng/mL -- Normal range between ( 0.015 and 0.045 ) ProBNP: 96 pg/mL -- Normal range between ( 0 and 125 ) Diagnostic Radiology 04/18/2020 3:53 PM CR Chest 1 Vw Portable: CR Chest 1 Vw Portable Emergency Awareness and Preventative Care STROKE is an EMERGENCY Every Minute Counts Act FAST and Check for these signs: FACE Does the face look uneven? ARM Does one arm drift down? SPEECH Does their speech sound strange? TIME Call at any sign of stroke Stroke Risk Factors Atrial Fibrillation (irregular heartbeat) Diabetes Family history of stroke Heart Disease Heavy alcohol use High Blood Pressure High Cholesterol Physical inactivity and obesity Smoking Cigarette Smoking The facts are clear, cigarette smoking will shorten your life. Smoking can cause many illnesses along the way. As a healthcare provider, we recommend that you stop smoking. Assistance with quitting is available by contacting 2-205-ENYANOW. This is a free resource providing counseling, support, and referral. Or you may contact your personal physician. [employer] Suicide Prevention Lifeline: The National Suicide Prevention Lifeline is a national network of local crisis centers that provides free and confidential emotional support to people in suicidal crisis or emotional distress 24 hours a day, 7 days a week. Don't Wait! Stop a Heart Attack Before it Starts What is a heart attack? A heart attack is damage or to a part of the heart from severely decreased or lack of blood flow to the heart. Over time, arteries can become narrow from the buildup of fat and cholesterol, which is called plaque. The plaque can rupture causing a blood clot to form. When the blood clot forms, the artery can become severely narrowed or completely blocked, causing a heart attack. Heart attack is the leading cause of in the [place]. 85% of muscle damage occurs within the first 2 hours. Delay in the recognition of heart attack symptoms increases the chances of . Know the early symptoms of a heart attack: Nausea Feeling of fullness in chest Jaw Pain Pain that travels down one or both arms Fatigue/being tired Anxiety Back Pain Chest pressure, squeezing, or discomfort Shortness of breath Sweating, or a cold sweat Feeling of impending doom There are unusual signs of a heart attack, too! Women, the elderly, and diabetics may present with atypical symptoms: Fainting/dizziness Weakness Confusion Risk Factors for a Heart Attack Some heart disease risk factors, such as age and family history, cannot be changed. Others, like smoking and lack of exercise, can be changed. Smoking High Cholesterol High Blood Pressure Family History Obesity Age Gender (Males are at higher risk) Lack of Exercise Diabetes Diet Stress Excessive Alcohol Intake If you or someone you know is experiencing the signs and symptoms of a heart attack, DON???T DELAY. Call immediately and seek help. If someone collapses, perform CPR! Do not attempt to drive if you are having symptoms of heart attack. Hands-Only CPR Why Hands-Only CPR? Hands-Only CPR has been shown to be as effective as conventional CPR for cardiac arrests that occur outside of a hospital. Survival depends on immediately receiving CPR from someone nearby. How do you perform Hands-Only CPR? There are two easy steps: Call if you see a teen or adult collapse Push hard and fast in the center of the chest at a beat of 100 beats per minute. Save a life! 4 WAYS TO GET AHEAD OF SEPSIS SEPSIS is a MEDICAL EMERGENCY. Time matters! Infections put you and your family at risk for a life-threatening condition called sepsis. Sepsis is the body's extreme response to an infection. It is life-threatening, and without timely treatment, sepsis can rapidly lead to tissue damage, organ failure, and . Sepsis happens when an infection you already have-in your skin, lungs, urinary tract or somewhere else-triggers a chain reaction throughout your body. 1 PREVENT INFECTIONS Take good care of chronic conditions. Talk to your doctor about getting the recommended vaccines. 2 PRACTICE GOOD HYGIENE Wash your hands frequently. Keep cuts or open sores clean and covered until they are healed. 3 KNOW THE SYMPTOMS Confusion or disorientation Shortness of breath High heart rate Fever, shivering, or feeling very cold Extreme pain or discomfort Clammy or sweaty skin 4 ACT FAST Get medical care IMMEDIATELY if you suspect sepsis or if you have an infection that is not getting better or is getting worse. To learn more about sepsis and how to prevent infections, visit www.cdc.gov/sepsis. The examination and treatment you have received in the Emergency Department has been done to provide an appropriate evaluation and stabilizing treatment on an emergency basis only. Given the limited resources, it is not meant to be a substitute for complete medical care. The follow-up doctor you named will receive a copy of your records and all test reports. IT IS IMPORTANT THAT YOU SCHEDULE A FOLLOW-UP APPOINTMENT AND ARE RE-EVALUATED. You should report any new complaints, symptoms, or remaining problems at that time. IT IS IMPOSSIBLE FOR THE EMERGENCY DEPARTMENT TO RECOGNIZE AND TREAT ALL ELEMENTS OF INJURY OR ILLNESS IN A SINGLE VISIT. If you have been referred to a specialist physician, it means that we believe you may have a condition that requires the expertise of a specialist. These physicians work in partnership with the hospital and have agreed to see referred patients in their office for further evaluation. KEEP IN MIND THAT THE SPECIALIST HAS HIS/HER OWN OFFICE POLICIES WHICH MAY REQUIRE PROPER INSURANCE OR PAYMENT UP FRONT BEFORE THE SPECIALIST WILL SEE YOU. It is your responsibility to call the specialist physician to make an appointment. We do not have the ability to refer patients to specialists/physicians that work with specific insurance companies. Please be advised that all financial charges or billing practices are determined by that practice, not the hospital. If your insurance company requires that you see a specialist from their approved list, it is your responsibility to contact your insurance company to make those arrangements. It is also your responsibility to follow any other requirements of your insurance company necessary to obtain coverage for claims submitted. We will bill your insurance; however, you are responsible today for any co-pay amounts. You will receive a separate bill for any services you may have received including: emergency, radiology, or pathology physicians. Patient Name:CHRISTIANO GUERRIER I have received this information and was given the opportunity to ask questions. Patient/Rubber Splicer Name: Patient/Rubber Splicer Signature: Relationship to Patient: Clinician/Hospital Rubber Splicer Signature: Please Provide a Telephone Number Where You Can Be Reached: Is it Permissible To Leave a Message? Date: documented in this encounter Plan of Treatment Not on file documented as of this encounter Visit Diagnoses Not on filedocumented in this encounter
--- OUTSIDE RECORDS SUMMARY | 2025-06-24 09:53 | XMS_ITS | Encounter Summary ---
Author Organization [employer] ([place], [place], [place], [place]) Address [address] [place] [address] Care Team Providers Care Animal Caretaker Supervisor Name Role Phone Unavailable Primary Care Provider Unavailabl e Encounter Details Date Type Department Care Team (Late st Contact Info) Description 04/18/2020 Transcribed Document [facility] [place] [address] [place] [address] ProviderLucian MD [address] [place] [address] Social History Tobacco Use Types [...] Historical ProviderMD - 04/18/2020 5:27 PM CDT [place] [id number] Visit Date/Time: 04/18/2020 17:27:57 DEREK FERRERA The above patient was seen in the hospital today and needs to be excused from work/school until Return to Work/School Date:04/20/2020 documented in this encounter Plan of Treatment Not on file documented as of this encounter Visit Diagnoses Not on filedocumented in this encounter
--- OUTSIDE RECORDS SUMMARY | 2025-06-24 09:53 | XMS_ITS | Encounter Summary ---
Author Organization [employer] ([place], [place], [place], [place]) Address [address] [place] [address] Care Team Providers Care Technology Assistant Name Role Phone Unavailable Primary Care Provider Unavailabl e Encounter Details Date Type Department Care Team (Late st Contact Info) Description 04/18/2020 Transcribed Document [facility] [place] [address] [place] [address] ProviderLucian MD [address] [place] [address] Social History Tobacco Use Types [...] Historical ProviderMD - 04/18/2020 5:27 PM CDT Electronically signed by [facility] Conversion Machine Greaser Cerner at 01/31/2023 11:28 AM CDT documented in this encounter Plan of Treatment Not on file documented as of this encounter Visit Diagnoses Not on filedocumented in this encounter
--- OUTSIDE RECORDS SUMMARY | 2025-06-24 09:53 | XMS_ITS | Clinical Summary ---
Author Organization [facility] Address [address] [place] [address] Care Team Providers Care Supervisor Estimator And Drafter Name Role Phone Yazan Wayne MD Primary Care Provider [phone] Allergies No known active allergies Medications bisoprolol (ZEBeta) 5 MG tablet Take 1 tablet by mouth Daily. Active difluprednate (DUREZOL) 0.05 % ophthalmic emulsion 5 Active Testosterone Cypionate (DEPOTESTOTERON E CYPIONATE) 200 MG/ML injection Inject 1 mL into the appropriate muscle as directed by prescriber Every 14 (Fourteen) Days. 5 Active Adalimumab-ryvk , 2 Pen, 40 MG/0.4ML Auto-injector Kit INJECT 40 MG UNDER THE SKIN INTO THE APPROPRIATE AREA EVERY 14 DAYS DIRECTED 6 each 5 Active Active Problems Problem Noted Date Diagnosed Date Other fatigue 01/12/2025 Assessment & Plan (01/12/2025 7:43 AM EDT): Update qtb and hepatitis panel with next lab orders Iritis 04/08/2024 Assessment & Plan (01/12/2025 7:43 AM EDT): Ophthalmology Dr. Josefina Rob in [place] Suspect secondary to ankylosing spondylitis Recurrent iritis every 3 to more 4 months historically Historically improved with Humira HLA B27 (HLA B27 positive) 04/08/2024 High risk medication use 04/08/2024 Assessment & Plan (01/12/2025 7:43 AM EDT): Humira We discussed biologic agents at length. Risks and alternatives were discussed at length and the option of no treatment was also given. We discussed risks including but not limited to infections which can be unusual, severe, and deadly. When possible, these agents should be stopped immediately if infections occur. Unusual infection such as TB and fungal infections can occur. There may be an increased risk of lymphoma with these agents. Other risks can include a multiple sclerosis-like illness and worsening of heart failure. Infusion or injection reactions which can be deadly have been reported. Studies on have not been done so should be avoided while on these agents. Reactivation of a deadly brain virus and hepatitis viruses have been reported. Worsening of COPD has been seen with orencia. Elevated lipids, elevation in liver functions, and dangerous changes in blood counts have been seen with certain agents. 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 Inflammatory back pain that is worse with rest. Failed NSAIDs. Humira start January 2019, restart 08/05 (off 4 months due to change in insurance) Exam, history, and labs consistent with ankylosing spondylitis. Low disease activity and he reports 90% improved on Humira. He missed Humira due to illness and then being out of medication. He hurts worse without Humira. No further iritis recently. He does flare when he misses too many doses of Humira. Humira well tolerated. No side effects. Continue Humira. Refilled Labs ordered today for monitoring as below Return to clinic 4 months Encounters Date Type Department Care Team Description 04/27/2025 Refill [facility] RHEUMATOLOGY [address] [id number] Marni Beverly APRN from Last 3 Months Family History Medical History Relation Name Comments Asthma Mother COPD Mother Relation Name Status Comments Mother Social History Tobacco Use Types Packs/Day [...] Sign Reading Time Taken Comments Blood Pressure 114/70 01/12/2025 10:29 AM EDT Pulse 66 01/12/2025 10:29 AM EDT Temperature 36.3 C (97.4 F) 01/12/2025 10:29 AM EDT Respiratory Rate - - Oxygen Saturation - - Inhaled Oxygen Concentration - - Weight 106 kg (234 lb 4.8 oz) 01/12/2025 10:29 A M EDT Height 177.8 cm (5' 10 ) 01/12/2025 10:29 AM EDT Body Mass Index 33.62 01/12/2025 10:29 AM EDT Plan of Treatment Health Maintenance Due Date Last Done Comments COVID-19 Vaccine (#1) 1990 Pneumococcal Vaccine 0-49 (1 of 2 - PCV) 2004 TDAP/TD VACCINES (1 - Tdap) 2004 ANNUAL PHYSICAL 03/05/2024 INFLUENZA VACCINE 07/14/2025 HEPATITIS C SCREENING Completed 01/12/2025 Procedures Procedure Name Priority Date/Time Associated Diagnosis Comments HEPATITIS PANEL, ACUTE Routine 01/12/2025 10:58 AM EDT Ankylosing spondylitis of multiple sites in spine High risk medication use Other fatigue from Last 3 Months or Most Recently Relevant to Health Maintenance Results * Hepatitis Panel, Acute (01/12/2025 10:58 AM EDT) Hepatitis B Surface Ag Non-Reacti ve Non-Reacti ve 01/13/2025 12:40 AM EDT [facility] Hep A IgM Non-Reacti ve Non-Reacti ve 01/13/2025 12:40 AM EDT [facility] Hep B C IgM Non-Reacti ve Non-Reacti ve 01/13/2025 12:40 AM EDT [facility] Hepatitis C Ab Non-Reacti ve Non-Reacti ve 01/13/2025 12:40 AM EDT [facility] Blood Venipuncture / Unknown 01/12/2025 10:58 AM EDT 01/12/2025 10:58 AM EDT Narrative [facility] - 01/13/2025 12:40 AM EDT Results may be falsely decreased if patient taking Biotin. us Marni Beverly MANUFACTURING TECHNOLOGY ANALYST LAB BLOOD ORDERABLES F inal Result [facility]
[address] [place] [address], from Last 3 Months or Most Recently Relevant to Health Maintenance Insurance [facility] PPO Care Teams Supervisor Estimator And Drafter Relationship Specialty Start Date End Date Yazan Wayne MD [address] [facility] [address] [place], [place] [id number] PCP - General 06/06/15
--- OUTSIDE RECORDS SUMMARY | 2025-06-24 09:53 | XMS_ITS | Encounter Summary ---
Author Organization [employer] ([place], [place], [place], [place]) Address [address] [place] [address] Care Team Providers Care Residential Youth Counselor Name Role Phone Unavailable Primary Care Provider Unavailabl e Encounter Details Date Type Department Care Team (Late st Contact Info) Description 04/18/2020 Transcribed Document [facility] [place] [address] [place] [address] ProviderLucian MD [address] [place] [address] Social History Tobacco Use Types Packs/Day Years Used Date Smoking Tobacco: Never Assessed Sex and Gender Information Value Date Recorded Sex Assigned at Male 04/12/2022 5:10 PM CDT Legal Sex Male 7:04 PM CDT Gender Identity Male 04/12/2022 5:10 PM CDT Sexual Orientation Not on file documented as of this encounter Miscellaneous Notes * Cerner Conversion Note - Historical ProviderMD - 04/18/2020 2:07 PM CDT [place] Suicide Severity Rating Scale (C-SSRS) Entered On: 04/18/2020 15:15 EDT Performed On: 04/18/2020 15:13 EDT by AWILDA CORNELIUS RN [place] Suicide Severity Rating Scale (C-SSRS) CSSRS Past Month Wish to be : No CSSRS Past Month Suicidal Thoughts : No CSSRS Lifetime Suicide Behavior : No Suicide Severity Rating Score : 0 Suicide Severity Rating : No Additional Care Required at this time Thoughts of Harming/Killing Others : No AWILDA CORNELIUS RN - 04/18/2020 15:13 EDT documented in this encounter Plan of Treatment Not on file documented as of this encounter Visit Diagnoses Not on filedocumented in this encounter
--- OUTSIDE RECORDS SUMMARY | 2025-06-24 09:53 | XMS_ITS | Encounter Summary ---
Author Organization [employer] ([place], [place], [place], [place]) Address [address] [place] [address] Care Team Providers Care Sand Blaster Name Role Phone Unavailable Primary Care Provider Unavailabl e Encounter Details Date Type Department Care Team (Late st Contact Info) Description 04/18/2020 Transcribed Document [facility] [place] Family Medicine [address] [place] [address] ProviderLucian MD [address] [place] [address] Social History Tobacco Use Types [...] Conversion Note - Lucian ProviderMD - 04/18/2020 5:26 [place] [address] CHRISTIANO GUERRIER :1985 Visit Time:04/18/2020 Your Visit [...] do next Follow-Up Appointments Follow Up with [facility] When Within 2 to 3 days Comments Return or go to the nearest ER for worsening uncontrolled pain, fever, dizziness, blood in your stool and or persistent vomiting. Prescriptions (1) Active sucralfate 1 g oral tablet 1 Gram = 1 Tab, Tab, QID, Oral, Dissolve one tablet in 1 ounce of water to make a similar event drink., 14 Day(s), 56 Tab, 0 refill(s), Print Requisition Where: [address] [place] [address]- Business (1) Follow [facility] with [facility] When Within As needed Comments Feel free to reach out to our [facility] for assistance with any physician scheduling needs at [phone]. Allergies No Known Medication Allergies Immunizations This Visit No Immunizations Found Medications What How Much When Instructions Next Dose sucralfate (sucralfate 1 g oral tablet) 1 Tablet(s) Oral Four Times A Day Duration: 14 Day(s) Dissolve one tablet in 1 ounce of water to make a similar event drink. Printed Prescription The home medications listed are only as [...] Vw Portable: CR Chest 1 Vw Portable Education Materials Food Choices for Gastroesophageal Reflux Disease, Adult When you have gastroesophageal reflux disease (GERD), the foods you eat and your eating habits are very important. Choosing the right foods can help ease the discomfort of GERD. Consider working with a diet and research nutritionist (dietitian) to help you make healthy food choices. What general guidelines should I follow? Eating plan ??? Choose healthy foods low in fat, such as fruits, vegetables, whole grains, low-fat dairy products, and lean meat, fish, and poultry. ??? Eat frequent, small meals instead of three large meals each day. Eat your meals slowly, in a relaxed setting. Avoid bending over or lying down until 2???3 hours after eating. ??? Limit high-fat foods such as fatty meats or fried foods. ??? Limit your intake of oils, butter, and shortening to less than 8 teaspoons each day. ??? Avoid the following: ? Foods that cause symptoms. These may be different for different people. Keep a food diary to keep track of foods that cause symptoms. ? Alcohol. ? Drinking large amounts of liquid with meals. ? Eating meals during the 2???3 hours before bed. ??? Cook foods using methods other than frying. This may include baking, grilling, or broiling. Lifestyle ??? Maintain a healthy weight. Ask your health care provider what weight is healthy for you. If you need to lose weight, work with your health care provider to do so safely. ??? Exercise for at least 30 minutes on 5 or more days each week, or as told by your health care provider. ??? Avoid wearing clothes that fit tightly around your waist and chest. ??? Do not use any products that contain nicotine or tobacco, such as cigarettes and e-cigarettes. If you need help quitting, ask your health care provider. ??? Sleep with the head of your bed raised. Use a wedge under the mattress or blocks under the bed frame to raise the head of the bed. What foods are not recommended? The items listed may not be a complete list. Talk with your dietitian about what dietary choices are best for you. Grains Pastries or quick breads with added fat. Northern Irish toast. Vegetables Deep fried vegetables. Northern Irish fries. Any vegetables prepared with added fat. Any vegetables that cause symptoms. For some people this may include tomatoes and tomato products, chili peppers, onions and garlic, and horseradish. Fruits Any fruits prepared with added fat. Any fruits that cause symptoms. For some people this may include citrus fruits, such as oranges, grapefruit, pineapple, and dang. Meats and other protein foods High-fat meats, such as fatty beef or pork, hot dogs, ribs, ham, sausage, salami and pierre. Fried meat or protein, including fried fish and fried chicken. Nuts and nut butters. Dairy Whole milk and chocolate milk. Sour cream. Cream. Ice cream. Cream cheese. Milk shakes. Beverages Coffee and tea, with or without caffeine. Carbonated beverages. Sodas. Energy drinks. Fruit juice made with acidic fruits (such as orange or grapefruit). Tomato juice. Alcoholic drinks. Fats and oils Butter. Margarine. Shortening. Ghee. Sweets and desserts Chocolate and cocoa. Donuts. Seasoning and other foods Pepper. Peppermint and spearmint. Any condiments, herbs, or seasonings that cause symptoms. For some people, this may include daugherty, hot sauce, or vinegar-based salad dressings. Summary ??? When you have gastroesophageal reflux disease (GERD), food and lifestyle choices are very important to help ease the discomfort of GERD. ??? Eat frequent, small meals instead of three large meals each day. Eat your meals slowly, in a relaxed setting. Avoid bending over or lying down until 2???3 hours after eating. ??? Limit high-fat foods such as fatty meat or fried foods. This information is not intended to replace advice given to you by your health care provider. Make sure you discuss any questions you have with your health care provider. Document Released: 09/30/2006 Document Revised: 10/01/2017 Document Reviewed: 10/01/2017 [employer] Interactive Patient Education ?? 2020 [employer]. Gastroesophageal Reflux Disease, Adult Gastroesophageal reflux (ZION) happens when acid from the stomach flows up into the tube that connects the mouth and the stomach (esophagus). Normally, food travels down the esophagus and stays in the stomach to be digested. However, when a person has ZION, food and stomach acid sometimes move back up into the esophagus. If this becomes a more serious problem, the person may be diagnosed with a disease called gastroesophageal reflux disease (GERD). GERD occurs when the reflux: ??? Happens often. ??? Causes frequent or severe symptoms. ??? Causes problems such as damage to the esophagus. When stomach acid comes in contact with the esophagus, the acid may cause soreness (inflammation) in the esophagus. Over time, GERD may create small holes (ulcers) in the lining of the esophagus. What are the causes? This condition is caused by a problem with the muscle between the esophagus and the stomach (lower esophageal sphincter, or LES). Normally, the LES muscle closes after food passes through the esophagus to the stomach. When the LES is weakened or abnormal, it does not close properly, and that allows food and stomach acid to go back up into the esophagus. The LES can be weakened by certain dietary substances, medicines, and medical conditions, including: ??? Tobacco use. ??? . ??? Having a hiatal hernia. ??? Alcohol use. ??? Certain foods and beverages, such as coffee, chocolate, onions, and peppermint. What increases the risk? You are more likely to develop this condition if you: ??? Have an increased body weight. ??? Have a connective tissue disorder. ??? Use NSAID medicines. What are the signs or symptoms? Symptoms of this condition include: ??? Heartburn. ??? Difficult or painful swallowing. ??? The feeling of having a lump in the throat. ??? A bitter taste in the mouth. ??? Bad breath. ??? Having a large amount of saliva. ??? Having an upset or bloated stomach. ??? Belching. ??? Chest pain. Different conditions can cause chest pain. Make sure you see your health care provider if you experience chest pain. ??? Shortness of breath or wheezing. ??? Ongoing (chronic) cough or a night-time cough. ??? Wearing away of tooth enamel. ??? Weight loss. How is this diagnosed? Your health care provider will take a medical history and perform a physical exam. To determine if you have mild or severe GERD, your health care provider may also monitor how you respond to treatment. You may also have tests, including: ??? A test to examine your stomach and esophagus with a small camera (endoscopy). ??? A test that measures the acidity level in your esophagus. ??? A test that measures how much pressure is on your esophagus. ??? A barium swallow or modified barium swallow test to show the shape, size, and functioning of your esophagus. How is this treated? The goal of treatment is to help relieve your symptoms and to prevent complications. Treatment for this condition may vary depending on how severe your symptoms are. Your health care provider may recommend: ??? Changes to your diet. ??? Medicine. ??? Surgery. Follow these instructions at home: Eating and drinking ??? Follow a diet as recommended by your health care provider. This may involve avoiding foods and drinks such as: ? Coffee and tea (with or without caffeine). ? Drinks that contain alcohol. ? Energy drinks and sports drinks. ? Carbonated drinks or sodas. ? Chocolate and cocoa. ? Peppermint and mint flavorings. ? Garlic and onions. ? Horseradish. ? Spicy and acidic foods, including peppers, chili powder, daugherty powder, vinegar, hot sauces, and barbecue sauce. ? [place] fruit juices and citrus fruits, such as oranges, dang, and limes. ? Tomato-based foods, such as red sauce, chili, salsa, and pizza with red sauce. ? Fried and fatty foods, such as donuts, kinyarwanda fries, potato chips, and high-fat dressings. ? High-fat meats, such as hot dogs and fatty cuts of red and white meats, such as rib eye steak, sausage, ham, and pierre. ? High-fat dairy items, such as whole milk, butter, and cream cheese. ??? Eat small, frequent meals instead of large meals. ??? Avoid drinking large amounts of liquid with your meals. ??? Avoid eating meals during the 2???3 hours before bedtime. ??? Avoid lying down right after you eat. ??? Do not exercise right after you eat. Lifestyle ??? Do not use any products that contain nicotine or tobacco, such as cigarettes, e-cigarettes, and chewing tobacco. If you need help quitting, ask your health care provider. ??? Try to reduce your stress by using methods such as yoga or meditation. If you need help reducing stress, ask your health care provider. ??? If you are overweight, reduce your weight to an amount that is healthy for you. Ask your health care provider for guidance about a safe weight loss goal. General instructions ??? Pay attention to any changes in your symptoms. ??? Take awgy-jrs-wbecvzm and prescription medicines only as told by your health care provider. Do not take aspirin, ibuprofen, or other NSAIDs unless your health care provider told you to do so. ??? Wear loose-fitting clothing. Do not wear anything tight around your waist that causes pressure on your abdomen. ??? Raise (elevate) the head of your bed about 6 inches (15 cm). ??? Avoid bending over if this makes your symptoms worse. ??? Keep all follow-up visits as told by your health care provider. This is important. Contact a health care provider if: ??? You have: ? New symptoms. ? Unexplained weight loss. ? Difficulty swallowing or it hurts to swallow. ? Wheezing or a persistent cough. ? A hoarse voice. ??? Your symptoms do not improve with treatment. Get help right away if you: ??? Have pain in your arms, neck, jaw, teeth, or back. ??? Feel sweaty, dizzy, or light-headed. ??? Have chest pain or shortness of breath. ??? Vomit and your vomit looks like blood or coffee grounds. ??? Faint. ??? Have stool that is bloody or black. ??? Cannot swallow, drink, or eat. Summary ??? Gastroesophageal reflux happens when acid from the stomach flows up into the esophagus. GERD is a disease in which the reflux happens often, causes frequent or severe symptoms, or causes problems such as damage to the esophagus. ??? Treatment for this condition may vary depending on how severe your symptoms are. Your health care provider may recommend diet and lifestyle changes, medicine, or surgery. ??? Contact a health care provider if you have new or worsening symptoms. ??? Take ouag-xkd-giuqkjj and prescription medicines only as told by your health care provider. Do not take aspirin, ibuprofen, or other NSAIDs unless your health care provider told you to do so. ??? Keep all follow-up visits as told by your health care provider. This is important. This information is not intended to replace advice given to you by your health care provider. Make sure you discuss any questions you have with your health care provider. Document Released: 07/10/2006 Document Revised: 04/08/2019 Document Reviewed: 04/08/2019 [employer] Interactive Patient Education ?? 2020 [employer]. Nonspecific Chest Pain, Adult Chest pain can be caused by many different conditions. It can be caused by a condition that is life-threatening and requires treatment right away. It can also be caused by something that is not life-threatening. If you have chest pain, it can be hard to know the difference, so it is important to get help right away to make sure that you do not have a serious condition. Some life-threatening causes of chest pain include: ??? Heart attack. ??? A tear in the body's main blood vessel (aortic dissection). ??? Inflammation around your heart (pericarditis). ??? A problem in the lungs, such as a blood clot (pulmonary embolism) or a collapsed lung (pneumothorax). Some non life-threatening causes of chest pain include: ??? Heartburn. ??? Anxiety or stress. ??? Damage to the bones, muscles, and cartilage that make up your chest wall. ??? Pneumonia or bronchitis. ??? Shingles infection (varicella-zoster virus). Chest pain can feel like: ??? Pain or discomfort on the surface of your chest or deep in your chest. ??? Crushing, pressure, aching, or squeezing pain. ??? Burning or tingling. ??? Dull or sharp pain that is worse when you move, cough, or take a deep breath. ??? Pain or discomfort that is also felt in your back, neck, jaw, shoulder, or arm, or pain that spreads to any of these areas. Your chest pain may come and go. It may also be constant. Your health care provider will do lab tests and other studies to find the cause of your pain. Treatment will depend on the cause of your chest pain. Follow these instructions at home: Medicines ??? Take cqmj-pey-wquwqfw and prescription medicines only as told by your health care provider. ??? If you were prescribed an antibiotic, take it as told by your health care provider. Do not stop taking the antibiotic even if you start to feel better. Lifestyle ??? Rest as directed by your health care provider. ??? Do not use any products that contain nicotine or tobacco, such as cigarettes and e-cigarettes. If you need help quitting, ask your health care provider. ??? Do not drink alcohol. ??? Make healthy lifestyle choices as recommended. These may include: ? Getting regular exercise. Ask your health care provider to suggest some activities that are safe for you. ? Eating a heart-healthy diet. This includes plenty of fresh fruits and vegetables, whole grains, low-fat (lean) protein, and low-fat dairy products. A dietitian can help you find healthy eating options. ? Maintaining a healthy weight. ? Managing any other health conditions you have, such as high blood pressure (hypertension) or diabetes. ? Reducing stress, such as with yoga or relaxation techniques. General instructions ??? Pay attention to any changes in your symptoms. Tell your health care provider about them or any new symptoms. ??? Avoid any activities that cause chest pain. ??? Keep all follow-up visits as told by your health care provider. This is important. This includes visits for any further testing if your chest pain does not go away. Contact a health care provider if: ??? Your chest pain does not go away. ??? You feel depressed. ??? You have a fever. Get help right away if: ??? Your chest pain gets worse. ??? You have a cough that gets worse, or you cough up blood. ??? You have severe pain in your abdomen. ??? You faint. ??? You have sudden, unexplained chest discomfort. ??? You have sudden, unexplained discomfort in your arms, back, neck, or jaw. ??? You have shortness of breath at any time. ??? You suddenly start to sweat, or your skin gets clammy. ??? You feel nausea or you vomit. ??? You suddenly feel lightheaded or dizzy. ??? You have severe weakness, or unexplained weakness or fatigue. ??? Your heart begins to beat quickly, or it feels like it is skipping beats. These symptoms may represent a serious problem that is an emergency. Do not wait to see if the symptoms will go away. Get medical help right away. Call your local emergency services (911 in the [place] Do not drive yourself to the hospital. Summary ??? Chest pain can be caused by a condition that is serious and requires urgent treatment. It may also be caused by something that is not life-threatening. ??? If you have chest pain, it is very important to see your health care provider. Your health care provider may do lab tests and other studies to find the cause of your pain. ??? Follow your health care provider's instructions on taking medicines, making lifestyle changes, and getting emergency treatment if symptoms become worse. ??? Keep all follow-up visits as told by your health care provider. This includes visits for any further testing if your chest pain does not go away. This information is not intended to replace advice given to you by your health care provider. Make sure you discuss any questions you have with your health care provider. Document Released: 07/10/2006 Document Revised: 08/18/2019 Document Reviewed: 04/02/2019 [employer] Interactive Patient Education ?? 2020 [employer]. Emergency Awareness and Preventative Care STROKE is [...] Assistance with quitting is available by contacting 6-141-VVUK-NOW. This is a free resource providing counseling, support, and referral. Or you may contact your personal physician. National Suicide Prevention Lifeline: The National Suicide Prevention [...] was given the opportunity to ask questions. Patient/Email Engineer Name: Patient/Email Engineer Signature: Relationship to Patient: Clinician/Hospital Email Engineer Signature: Please Provide a Telephone Number Where You Can Be Reached: Is it Permissible To Leave a Message? Date: documented in this encounter Plan of Treatment Not on file documented as of this encounter Visit Diagnoses Not on filedocumented in this encounter
--- OUTSIDE RECORDS SUMMARY | 2025-06-24 09:53 | XMS_ITS | Encounter Summary ---
Author Organization [employer] ([place], [place], [place], [place]) Address [address] [place] [address] Care Team Providers Care Veterans Contact Representative Name Role Phone Unavailable Primary Care Provider Unavailabl e Encounter Details Date Type Department Care Team (Late st Contact Info) Description 04/20/2020 Transcribed Document [facility] [place] Family Medicine [address] [place] [address] ProviderLucian MD [address] [place] [address] Social History Tobacco Use Types Packs/Day Years Used Date Smoking Tobacco: Never Assessed Sex and Gender Information Value Date Recorded Sex Assigned at Male 04/12/2022 5:10 PM CDT Legal Sex Male 7:04 PM CDT Gender Identity Male 04/12/2022 5:10 PM CDT Sexual Orientation Not on file documented as of this encounter Miscellaneous Notes * [employer] Conversion Note - Historical ProviderMD - 04/20/2020 1:17 PM CDT CR Chest 1 Vw Portable Ordered: 04/18/2020 Modified Reason for Exam: chest tightness 04/18/2020 16:32 04/20/2020 13:17 (HASEEB MALLORY, MANAGER GREEN-EMR) Reviewed by Provider, No further action required x1 documented in this encounter Plan of Treatment Not on file documented as of this encounter Visit Diagnoses Not on filedocumented in this encounter
--- OUTSIDE RECORDS SUMMARY | 2025-06-24 09:53 | XMS_ITS | Encounter Summary ---
Author Organization [employer] ([place], [place], [place], [place]) Address [address] [place] [address] Care Team Providers Care Ranch Hand Livestock Name Role Phone Unavailable Primary Care Provider Unavailabl e Encounter Details Date Type Department Care Team (Late st Contact Info) Description 04/18/2020 Transcribed Document [facility] [place] [facility] [place] [place] [address] ProviderLucian MD [facility] [place] [address] Social History Tobacco Use Types [...] Historical ProviderMD - 04/18/2020 2:07 PM CDT ED Triage Entered On: 04/18/2020 14:23 EDT Performed On: 04/18/2020 14:19 EDT by JENNIFER SAHNI RN ED Triage Across the Room Chief Complaint : pt c/o midsternal pain +sob -n/v radiating into back Triage Date/Time : 04/18/2020 14:19 EDT JENNIFER SAHNI RN - 04/18/2020 14:19 EDT DCP GENERIC CODE Tracking Acuity : 3 - Urgent Tracking Group : [facility] ED [facility] JENNIFER SAHNI RN - 04/18/2020 14:19 EDT Mode of Arrival : Ambulatory Transported to ED by : Walk in To Room Via : Ambulate Accompanied By : Unaccompanied ED Vital Signs : Document Height & Weight : Document ED Allergies : Document ED Reason for Visit : Document ED Triage Treatments : Document JENNIFER SAHNI RN - 04/18/2020 14:19 EDT Infectious Disease History Has the patient ever been tested for COVID-19? : No, Patient stated COVID19 Screening : No Experiencing Infectious Disease Symptoms : No symptoms Physical contact outside [place] in the last 30 days : No Infectious Disease Symptoms Score : 0 Infectious Disease History : None Tuberculosis Symptoms : None JENNIFER SAHNI RN - 04/18/2020 14:19 EDT Vital Signs ED Temperature Mode : Fahrenheit Temperature, Fahrenheit : 98.7 Deg F Clinical Temperature, C : 37.1 Deg C Peripheral Pulse Rate : 89 bpm Respiratory Rate : 14 Breaths/Min Systolic Blood Pressure : 127 mmHg Diastolic Blood Pressure : 70 mmHg Oxygen Saturation : 99 % JENNIFER SAHNI RN - 04/18/2020 14:19 EDT Allergy (As Of: 04/18/2020 14:23:16 EDT) Allergies (Active) No Known Medication Allergies Estimated Onset Date: Unspecified ; Created By: JENNIFER SAHNI RN; Reaction Status: Active ; Category: Drug ; Substance: No Known Medication Allergies ; Type: Allergy ; Updated By: JENNIFER SAHNI RN; Reviewed Date: 04/18/2020 14:22 EDT Diagnosis Control ED (As Of: 04/18/2020 14:23:16 EDT) Diagnoses(Active) Chest pain Date: 04/18/2020 ; Diagnosis Type: Reason For Visit ; Confirmation: Complaint of ; Clinical Dx: Chest pain ; Classification: Medical ; Clinical Service: Emergency medicine ; Code: PNED ; Probability: 0 ; Diagnosis Code: [id number] ED Height and Weight Height Source : Measured Height Entry Format : [place] Height, Feet : 5 ft(Converted to: 152 cm, 60 Inch) Height, Inches : 10 Inch(Converted to: 0 ft 10 Inch, 25.40 cm) Clinical Height : 177.8 cm Weight Source, ED : Standing scale Weight Entry Format : [place] Weight, Pounds : 180 lb Clinical Dosing Weight : 81.82 kg Body Surface Area (BSA) : 2 m2 Body Mass Index : 25.9 kg/m2 (HI) [place] Body Weight (IBW) : 72.02 kg JENNIFER SAHNI RN - 04/18/2020 14:19 EDT Triage Initial Exam and Interventions, ED Level of Consciousness : Alert, Awake, Comatose Affect/Behavior : Appropriate, Calm, Cooperative Orientation : Oriented x 4 Skin Temperature : Warm Triage Interventions : EKG (Comment: reviewed by dr. cochran [JENNIFER SAHNI RN - 04/18/2020 14:19 EDT] ) JENNIFER SAHNI RN - 04/18/2020 14:19 EDT Electronically signed by [facility] Conversion [employer] Developer [employer] at 01/31/2023 11:45 AM CDT documented in this encounter Plan of Treatment Not on file documented as of this encounter Visit Diagnoses Not on filedocumented in this encounter
--- OUTSIDE RECORDS SUMMARY | 2025-06-24 09:53 | XMS_ITS | Encounter Summary ---
Author Organization [employer] ([place], [place], [place], [place]) Address [address] [place] [address] Care Team Providers Care Learning Engineer Name Role Phone Unavailable Primary Care Provider Unavailabl e Encounter Details Date Type Department Care Team (Late st Contact Info) Description 04/18/2020 Transcribed Document [facility] [place] Family [place] [facility] [place] [address] ProviderLucian [place] [address] Social History Tobacco Use Types [...] Conversion Note - Lucian ProviderMD - 04/18/2020 5:17 PM CDT Patient Resource Center Entered On: 04/18/2020 17:18 EDT Performed On: 04/18/2020 17:17 EDT by Sohail Monteiro Scheduler Patient Resource Center Provider Status : EST Other Established Provider Name : Yazan Wayne Patient Phone Number : [phone] Patient Insurance Type : Commercial (ex. [place] PPO, Cigna HMO) Source of Referral : Requirements not met Location of Patient : Emergency department Primary Care Scheduled : No Specialty Care Scheduled : No Qualify for Diabetes and/or Nutrition Referral : No Wound Care Appointment Made : No Why Patient Visited ED- Specialty spent : Other How Patient Arrived at ED : Personal Vehicle Primary Language : Djiboutian Patient Resource Center Comment : Patient established with Dr. Yazan Wayne. Patient Resource information put in DC summary for any scheduling needs. Follow Up Needed : No Sohail Monteiro Scheduler - 04/18/2020 17:17 EDT documented in this encounter Plan of Treatment Not on file documented as of this encounter Visit Diagnoses Not on filedocumented in this encounter
--- OUTSIDE RECORDS SUMMARY | 2025-06-24 09:53 | XMS_ITS | Encounter Summary ---
Author Organization [employer] ([place], [place], [place], [place]) Address [address] [place] [address] Care Team Providers Care Ux Ui Designer Name Role Phone Unavailable Primary Care Provider Unavailabl e Encounter Details Date Type Department Care Team (Late st Contact Info) Description 04/18/2020 Transcribed Document [facility] [place] Family Medicine [address] [place] [address] ProviderLucian MD [address] [place] [address] Social History Tobacco Use Types [...] ProviderMD - 04/18/2020 2:07 PM CDT ED Assessment Entered On: 04/18/2020 15:14 EDT Performed On: 04/18/2020 15:13 EDT by AWILDA CORNELIUS RN ED Quick Look Assessment Level of Consciousness : Alert Affect/Behavior : Calm, Cooperative Orientation : Oriented x 4 Skin Temperature : Warm AWILDA CORNELIUS RN - 04/18/2020 15:13 EDT ED General-Functional Assess Information Obtained From : Patient Communication Barrier : None Primary Language : Sudanese Any Spiritual/Cultural Needs or Requests : No Currently in Unsafe Situation : No AWILDA CORNELIUS RN - 04/18/2020 15:13 EDT Social Habits Smoking Status : Never (less than 100 in lifetime; none in last 30 days) Smokeless Tobacco Status : Never Desires Tobacco Cessation Calc : 0 AWILDA CORNELIUS RN - 04/18/2020 15:13 EDT Social History (As Of: 04/18/2020 15:14:59 EDT) Cardiovascular ASMT, ED Cardiovascular Assessment WDL : WDL with exceptions Cardiovascular Symptoms : Chest pain at rest, Chest pain with activity Heart Rhythm : Regular Chest Pain : Yes AWILDA CORNELIUS RN - 04/18/2020 15:13 EDT Pulses Grid Radial Pulse, Left : 2+ normal Radial Pulse, Right : 2+ normal AWILDA CORNELIUS RN - 04/18/2020 15:13 EDT Respiratory Breath Sounds Auscultated : Posterior, Anterior Respiratory Assessment WDL : WDL Cough : None AWILDA CORNELIUS RN - 04/18/2020 15:13 EDT Breath Sounds Assessment Grid All Lobes Breath Sounds : Clear AWILDA CORNELIUS RN - 04/18/2020 15:13 EDT Neurologic ASMT, ED Neurologic Assessment WDL : WDL Neurological Symptoms : None Level of Consciousness : Alert, Awake Affect/Behavior : Calm, Cooperative Orientation : Oriented x 4 AWILDA CORNELIUS RN - 04/18/2020 15:13 EDT documented in this encounter Plan of Treatment Not on file documented as of this encounter Visit Diagnoses Not on filedocumented in this encounter
--- OUTSIDE RECORDS SUMMARY | 2025-06-24 09:53 | XMS_ITS | Referral Summary ---
Author Organization [employer] ([place], [place], [place], [place]) Address [address] [place] [address] Care Team Providers Care Body Coverer Name Role Phone Unavailable Primary Care Provider [...]
--- OUTSIDE RECORDS SUMMARY | 2025-06-24 09:53 | XMS_ITS ---
Author Organization [facility] Address [address] [place] [address] Care Team Providers Care Line Crew Supervisor Name Role Phone Yazan Wayne MD Primary Care Provider [phone] Rheumatology - External Fill Status:Enrolled (Active) Start date:04/06/2024 Enrollment date:04/06/2024 Current support & services provided:Benefits Investigation, Prior Authorization, External Pharmacy Dispensing Linked medications:Adalimumab (Discontinued) Linked problems:Ankylosing spondylitis of multiple sites in spine (Active) Case Team Name Relationship Phone Kristi Recinos Linderman Operator Patient Ca re Digital Marketing Analyst Domo Gonzalez Linderman Operator Digital Marketing Analyst Rafi Pierce PharmD Pharmacist Continued Care and Services Coordination
--- OUTSIDE RECORDS SUMMARY | 2025-06-24 09:53 | XMS_ITS | Encounter Summary ---
Author Organization [facility] Address [address] [place] [address] Care Team Providers Care Woodwind Reeds Cutter Name Role Phone Yazan Wayne MD Primary Care Provider [phone] Reason for Visit * Reason Comments Med Refill Encounter Details Date Type Department Care Team (Late st Contact Info) Description 04/27/2025 Refill [facility] RHEUMATOLOGY [address] [facility] [address] [place] [address] Marni Beverly APRN [address] [facility] [address] [place] [address] Social History Tobacco Use Types Packs/Day Years [...] as of this encounter Miscellaneous Notes * Telephone Encounter - Rafi Pierce, Moni - 04/27/2025 11:31 AM EDT Images from the original note were not included. Specialty Pharmacy Patient Management Program Per Protocol Prescription Order/Refill Patient currently fills medications at [facility] and is not enrolled in an Rheumatology Patient Management Program. Requested Prescriptions Pending Prescriptions Disp Refills Adalimumab-ryvk, 2 Pen, 40 MG/0.4ML Auto-injector Kit [Pharmacy Med Name: ADALIMUMAB-RYVK 40MG/0.4ML AI PEN KIT 2S] 6 each 0 Sig: INJECT 40 MG UNDER THE SKIN INTO THE APPROPRIATE AREA EVERY 14 DAYS DIRECTED Prescription orders above were sent to the pharmacy per Collaborative Care Agreement Protocol. documented in this encounter Plan of Treatment Not on file documented as of this encounter Visit Diagnoses Not on filedocumented in this encounter Care Teams Woodwind Reeds Cutter Relationship Specialty Start Date End Date Yazan Wayne MD [address] [facility] [address] [place] [address] PCP - General 06/06/15 documented as of this encounter
[2025-06-24 10:00] LABS: Hematocrit 43.0 % (42.0-52.0); Hemoglobin 14.8 g/dL (14.1-18.0); Immature Granulocytes % 0.2 %; Mean Corpuscular HGB Conc 34.4 g/dL (31.8-35.4); Mean Corpuscular Hemoglobin 30.0 pg (27.0-31.2); Mean Corpuscular Volume 87.2 fl (80-94); Nucleated Red Blood Cells % 0 %; Platelet Count 276 K/mm3 (142-424); Red Blood Count 4.93 M/mm3 (4.60-6.20); Red Cell Distribution Width-SD 40.1 fL; White Blood Count 5.6 K/mm3 (4.8-10.8)
[2025-06-24 10:27] LABS: Albumin Level 4.6 g/dl (3.5-5.0); Chloride 103 mmol/L (98-107); Potassium 4.4 mmoL/L (3.5-5.1); Sodium 138 mmol/L (136-145)
[2025-06-24 10:29] LABS: Blood Urea Nitrogen 15 mg/dl (9-20); Creatinine,Serum 0.90 mg/dl (0.66-1.25); Estimated Glomerular Filt Rate 93 ml/min (>60); GFR (African American) 113 ML/MIN (>60)
[2025-06-24 10:30] LABS: Alanine Aminotransferase 24 U/L (12-78); Alkaline Phosphatase 51 U/L (38-126); Anion Gap 11.4 mEq/L (5-15); Aspartate Amino Transferase 27 U/L (17-59); Bilirubin,Direct 0.1 mg/dl (0.0-0.4); Bilirubin,Indirect 0.9 mg/dL (0.0-0.9); Bilirubin,Total 1.0 mg/dl (0.2-1.3); Bilirubin,Unconjugated 0.8 mg/dL (0.0-1.1); Calcium 9.8 mg/dl (8.4-10.2); Carbon Dioxide 28 mmol/L (22.0-30.0); Cholesterol 261 mg/dl (140-200); Glucose 85 mg/dl (74-100); HDL Cholesterol 43 mg/dl (40-60); Magnesium 1.6 mg/dl (1.6-2.3); Total Protein,Serum 7.3 g/dl (6.3-8.2); Triglycerides 84 mg/dl (30-150)
[2025-06-24 11:01] LABS: Thyroid Stimulating Hormone 0.24 uIU/mL (0.465-4.68)
[2025-06-24 13:48] LABS: Free T4 (Free Thyroxine) 1.33 ng/dl (0.78-2.19)
== END 2025-06-24 23:59 | disposition home or self-care (01) ==
LOC: LAB 09:44
PROVIDERS: PCP Internal Medicine; Visit Provider Physician Assistant
DX: E78.5 Hyperlipidemia, unspecified (principal)
CPT/HCPCS: 36415; 80048; 80061; 80076; 83735; 84439; 84443; 85025

== ENCOUNTER 2025-07-23 08:43 | Outpatient (CLI) | payer BC, SELFPAY ==
--- OUTSIDE RECORDS SUMMARY | 2025-07-23 08:46 | XMS_ITS | Encounter Summary ---
Author Organization [facility] Address [address] [place] [id number] Care Team Providers Care Strand And Binder Controller Name Role Phone Yazan Wayne MD Primary Care Provider [phone] Encounter Details Date Type Department Care Team (Late st Contact Info) Description 01/13/2025 Results Follow-Up [facility] [place] [address] [place] [address] Marni Beverly, BARBARA [address] [facility] [address] [place] [address] Social History Tobacco Use Types Packs/Day Years [...] on filedocumented in this encounter Care Teams Strand And Binder Controller Relationship Specialty Start Date End Date Yazan Wayne MD [address] [place] [facility] [address] [facility] [id number] PCP - General 06/06/15 documented as of this encounter
--- OUTSIDE RECORDS SUMMARY | 2025-07-23 08:46 | XMS_ITS | Encounter Summary ---
Author Organization [employer] ([place], [place], [place], [place]) Address [address] [place] [address] Care Team Providers Care Export Sales Manager Name Role Phone Unavailable Primary Care Provider Unavailabl e Encounter Details Date Type Department Care Team (Late st Contact Info) Description 04/18/[address] [facility] [place] Family Medicine [address] [place] [address] ProviderLucian MD [address] [place] [address] Social History Tobacco Use Types Packs/Day Years [...] On: 04/18/2020 17:27 EDT by AWILDA CORNELIUS oracle sql developer Process Patient Disposition : Discharge Personal Belongings [...]
--- OUTSIDE RECORDS SUMMARY | 2025-07-23 08:46 | XMS_ITS | Encounter Summary ---
Author Organization [employer] ([place], [place], [place], [place]) Address [address] [place] [address] Care Team Providers Care It Coordinator Name Role Phone Unavailable Primary Care Provider Unavailabl e Encounter Details Date Type Department Care Team (Late st Contact Info) Description 04/18/2020 Transcribed Document [facility] [facility] [place] [address] ProviderLucian MD [facility] [place] [address] Social History Tobacco Use Types [...] & time 04/18/2020 14:45:00, Voice recognition / events director technology used for some documentation in this [...] EDT Height Source Measured Height Entry Format [place] Height/Length, SOMALI (ft) 5 ft Height/Length SOMALI 10 Inch CLINICALHEIGHT 177.8 cm [place] Body Weight 72.02 kg Weight Source, ED Standing scale Weight Entry Format [place] Weight Ken[place] lb 180 lb CLINICALWEIGHT 81.82 kg Body [...] Triage: ED C-SSRS: ED Clinical Reconciliation: ED hostage negotiator: Normal Saline Bolus: 1,000 mL, 250 mL/Hr, [...] Radiology results: Radiology Results (Last 48 hours) [id number] -- 04/18/2020 14:07 CR Chest 1 Vw [...] 17:17 EDT, Discharge to: Home. Prescriptions: Prescription Senior Controls Engineer Pharmacy: sucralfate 1 g oral tablet (Prescribe): [...] assistance with any physician scheduling needs at [phone].; [facility] Within 2 to 3 days [...]
--- OUTSIDE RECORDS SUMMARY | 2025-07-23 08:46 | XMS_ITS | Encounter Summary ---
Author Organization [employer] ([place], [place], [place], [place]) Address [address] [place] [address] Care Team Providers Care Dispenser Operator Name Role Phone Unavailable Primary Care Provider Unavailabl e Encounter Details Date Type Department Care Team (Late st Contact Info) Description 04/18/2020 Transcribed Document [facility] [place] Family Medicine [facility] [place] [address] ProviderLucian MD [facility] [place] [address] Social History Tobacco Use Types [...] : 3 - Urgent Tracking Group : [facility] ED [facility] JENNIFER SAHNI RN - 04/18/2020 14:19 [...] PNED ; Probability: 0 ; Diagnosis Code: [id number] ED Height and Weight Height Source : Measured Height Entry Format : [place] Height, Feet : 5 ft(Converted to: 152 cm, 60 Inch) Height, Inches : 10 Inch(Converted to: 0 ft 10 Inch, 25.40 cm) Clinical Height : 177.8 cm Weight Source, ED : Standing scale Weight Entry Format : [place] Weight, Pounds : 180 lb Clinical Dosing Weight : 81.82 kg Body Surface Area (BSA) : 2 m2 Body Mass Index : 25.9 kg/m2 (HI) [place] Body Weight (IBW) : 72.02 kg JENNIFER [...] - 04/18/2020 14:19 EDT Electronically signed by [facility] Conversion Consulting Actuary Cerner at 01/31/2023 11:45 AM CDT documented in this encounter Plan of Treatment Not on file documented as of this encounter Visit Diagnoses Not on filedocumented in this encounter
--- OUTSIDE RECORDS SUMMARY | 2025-07-23 08:46 | XMS_ITS | Encounter Summary ---
Author Organization [employer] ([place], [place], [place], [place]) Address [address] [place] [address] Care Team Providers Care Chief Technician Name Role Phone Unavailable Primary Care Provider Unavailabl e Encounter Details Date Type Department Care Team (Late st Contact Info) Description 04/18/2020 Transcribed Document [facility] [place] Family Medicine [address] [place] [address] ProviderLucian MD [address] [place] [address] Social History Tobacco Use Types [...] Lucian ProviderMD - 04/18/2020 5:22 [place] [address] CHRISTIANO GUERRIER :1985 Visit Time:04/18/2020 Your Visit [...] assistance with any physician scheduling needs at [phone]. Follow Up with [facility] When Within 2 to 3 days Where: [address] [place] [address] [place] [address]- Business (1) Allergies No Known Medication Allergies [...] Assistance with quitting is available by contacting 2-676-OHJINOW. This is a free resource providing counseling, support, and referral. Or you may contact your personal physician. [place] Suicide Prevention Lifeline: The National Suicide Prevention [...] was given the opportunity to ask questions. Patient/Reinsurance Claim Analyst Name: Patient/Reinsurance Claim Analyst Signature: Relationship to Patient: Clinician/Hospital Reinsurance Claim Analyst Signature: Please Provide a Telephone Number Where You Can Be Reached: Is it Permissible To Leave a Message? Date: documented in this encounter Plan of Treatment Not on file documented as of this encounter Visit Diagnoses Not on filedocumented in this encounter
--- OUTSIDE RECORDS SUMMARY | 2025-07-23 08:46 | XMS_ITS | Encounter Summary ---
Author Organization [employer] ([place], [place], [place], [place]) Address [address] [place] [address] Care Team Providers Care Fashion Buying Internship Name Role Phone Unavailable Primary Care Provider Unavailabl e Encounter Details Date Type Department Care Team (Late st Contact Info) Description 04/18/2020 Transcribed Document [facility] [address] [place] [address] ProviderLucian MD [address] [place] [address] Social History Tobacco Use Types [...] Lucian ProviderMD - 04/18/2020 5:26 [place] [address] CHRISTIANO GUERRIER :1985 Visit Time:04/18/2020 Your Visit [...] [address] [place] [address]- Business (1) Follow Up with [facility]IENT [facility]OURCE [facility] When Within As needed Comments Feel free to reach out to our Patient Resource Center for assistance with any physician scheduling needs at [phone]. Allergies No Known Medication Allergies Immunizations This [...] GERD. Consider working with a diet and patient registration specialist (dietitian) to help you make healthy food [...] Pastries or quick breads with added fat. Icelandic toast. Vegetables Deep fried vegetables. Icelandic fries. Any vegetables prepared with added fat. [...] 09/30/2006 Document Revised: 10/01/2017 Document Reviewed: 10/01/2017 [employer] Interactive Patient Education ?? 2020 [employer]. Gastroesophageal Reflux Disease, Adult Gastroesophageal reflux (ZION) [...] vinegar, hot sauces, and barbecue sauce. ? [place] fruit juices and citrus fruits, such as oranges, dang, and limes. ? Tomato-based foods, such as red sauce, chili, salsa, and pizza with red sauce. ? Fried and fatty foods, such as donuts, yakut fries, potato chips, and high-fat dressings. ? [...] any changes in your symptoms. ??? Take ldvn-alp-qpnrnbc and prescription medicines only as told by [...] have new or worsening symptoms. ??? Take acdq-toz-bbyyvoq and prescription medicines only as told by [...] 07/10/2006 Document Revised: 04/08/2019 Document Reviewed: 04/08/2019 [employer] Interactive Patient Education ?? 2020 [employer]. Nonspecific Chest Pain, Adult Chest pain can [...] these instructions at home: Medicines ??? Take oucs-mni-nzwmyrr and prescription medicines only as told by [...] 07/10/2006 Document Revised: 08/18/2019 Document Reviewed: 04/02/2019 [employer] Interactive Patient Education ?? 2020 [employer]. Emergency Awareness and Preventative Care STROKE is [...] Assistance with quitting is available by contacting 3-914-MVYX-NOW. This is a free resource providing counseling, [...] was given the opportunity to ask questions. Patient/Elementary Assistant Teacher Name: Patient/Elementary Assistant Teacher Signature: Relationship to Patient: Clinician/Hospital Elementary Assistant Teacher Signature: Please Provide a Telephone Number Where You Can Be Reached: Is it Permissible To Leave a Message? Date: documented in this encounter Plan of Treatment Not on file documented as of this encounter Visit Diagnoses Not on filedocumented in this encounter
--- OUTSIDE RECORDS SUMMARY | 2025-07-23 08:46 | XMS_ITS | Encounter Summary ---
Author Organization [employer] ([place], [place], [place], [place]) Address [address] [place] [address] Care Team Providers Care Arts And Crafts Teacher Name Role Phone Unavailable Primary Care Provider Unavailabl e Encounter Details Date Type Department Care Team (Late st Contact Info) Description 04/18/2020 Transcribed Document [facility] [place] [address] [place] [address] ProviderLucian MD [address] [place] [address] Social History Tobacco Use Types Packs/Day Years [...] Historical ProviderMD - 04/18/2020 2:07 PM CDT [place] Suicide Severity Rating Scale (C-SSRS) Entered On: 04/18/2020 15:15 EDT Performed On: 04/18/2020 15:13 EDT by AWILDA CORNELIUS RN [place] Suicide Severity Rating Scale (C-SSRS) CSSRS Past Month Wish to be : No CSSRS Past Month Suicidal Thoughts : No CSSRS Lifetime Suicide Behavior : No Suicide Severity Rating Score : 0 Suicide Severity Rating : No Additional Care Required at this time Thoughts of Harming/Killing Others : No AWILDA CORNELIUS RN - 04/18/2020 15:13 EDT Electronically signed by Gris Herring Conversion Pharmaceutical Sales Specialist Cerner at 01/31/2023 11:35 AM CDT documented in this encounter Plan of Treatment Not on file documented as of this encounter Visit Diagnoses Not on filedocumented in this encounter
--- OUTSIDE RECORDS SUMMARY | 2025-07-23 08:47 | XMS_ITS ---
Author Organization [facility] Address [address] [place] [address] Care Team Providers Care Community Relations Coordinator Name Role Phone Yazan Wayne MD Primary Care Provider [phone] Rheumatology - External Fill Status:Enrolled (Active) Start date:04/06/2024 Enrollment date:04/06/2024 Current support & services provided:Benefits Investigation, Prior Authorization, External Pharmacy Dispensing Linked medications:Adalimumab (Discontinued) Linked problems:Ankylosing spondylitis of multiple sites in spine (Active) Case Team Name Relationship Phone Kristi Recinos Pillow Filler Patient Ca re Classification Officer Domo Gonzalez Pillow Filler Classification Officer Rafi Pierce PharmD Pharmacist Continued Care and Services Coordination
--- OUTSIDE RECORDS SUMMARY | 2025-07-23 08:47 | XMS_ITS | Encounter Summary ---
Author Organization [employer] ([place], [place], [place], [place]) Address [address] [place] [address] Care Team Providers Care Environmental Studies Department Chair Name Role Phone Unavailable Primary Care Provider Unavailabl e Encounter Details Date Type Department Care Team (Late st Contact Info) Description 04/18/[address] [facility] [place] [address] [place] [address] ProviderLucian MD [address] [place] [address] Social History Tobacco Use Types [...] Historical ProviderMD - 04/18/2020 5:27 PM CDT documented in this encounter Plan of Treatment Not on file documented as of this encounter Visit Diagnoses Not on filedocumented in this encounter
--- OUTSIDE RECORDS SUMMARY | 2025-07-23 08:47 | XMS_ITS | Clinical Summary ---
Author Organization [facility] Address [address] [place] [address] [address] Team Prov[address] Care [address] Man Name Role Phone Yazan Wayne MD Primary Care Provider [phone] Family History Medical History Relation Name Comments [...] Date Last Done Comments [facility]-Depression Screening 1985 [facility]-/Child/Adol SDOH Screenings 1985 [facility]-Varicella Vaccines (1 of 2 - 13+ 2-dose series) 1998 [facility]- SDOH Screenings 2003 [facility]-Adult SDOH Screenings 2003 [facility]-DTaP,Tdap,and Td Vaccine s (1 - Tdap) 2004 [facility]-Hepatitis B Vaccines (1 of 3 - 19+ 3-dose series) 2004 HPV Vaccines (1 - 3-dose SCD M series) 2012 [id number] Vaccine (1 - 20 24-25 season) 2025 [...] to complete this topic Insurance [place] [id number] Man Relationship Specialty Start Date End Date Yazan Wayne MD [address] [facility] [address] [place] [address] PCP - General 02/24/21
--- OUTSIDE RECORDS SUMMARY | 2025-07-23 08:47 | XMS_ITS | Referral Summary ---
Author Organization [employer] ([place], [place], [place], [place]) Address [address] [place] [address] Care Team Providers Care Bar Finish Operator Name Role Phone Unavailable Primary Care [...]
--- OUTSIDE RECORDS SUMMARY | 2025-07-23 08:47 | XMS_ITS | Clinical Summary ---
Author Organization [employer] ([place], [place], [place], [place]) Address [address] [place] [address] Care Team Providers Care Director Of Product Marketing Name Role Phone Unavailable Primary Care Provider [...]
--- OUTSIDE RECORDS SUMMARY | 2025-07-23 08:47 | XMS_ITS | Clinical Summary ---
Author Organization [facility] Address [address] [place] [address] Care Team Providers Care Recruitment Manager Name Role Phone Yazan Wayne MD Primary Care Provider [phone] Allergies No known active allergies Medications bisoprolol [...] AM EDT): Ophthalmology Dr. 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, history iritis, chronic back pain [...] Type Department Care Team Description 04/27/2025 Refill [facility] RHEUMATOLOGY [address] [address] Marni Beverly APRN from Last [...] Health Maintenance Due Date Last Done Comments Pneumococcal Vaccine 0-49 (1 of 2 - PCV) 2004 TDAP/TD VACCINES (1 - Tdap) 2004 ANNUAL PHYSICAL 03/05/2024 INFLUENZA VACCINE 05/14/2025 HEPATITIS C SCREENING Completed 01/12/2025 Procedures Procedure [...] ve Non-Reacti ve 01/13/2025 12:40 AM EDT [facility] Hep A IgM Non-Reacti ve Non-Reacti ve 01/13/2025 12:40 AM EDT [facility] Hep B C IgM Non-Reacti ve Non-Reacti ve 01/13/2025 12:40 AM EDT [facility] Hepatitis C Ab Non-Reacti ve Non-Reacti ve 01/13/2025 12:40 AM EDT [facility] Blood Venipuncture / Unknown 01/12/2025 10:58 AM EDT 01/12/2025 10:58 AM EDT Narrative [facility] - 01/13/2025 12:40 AM EDT Results may be falsely decreased if patient taking Biotin. us Marni Beverly ENGINEERING FACULTY LAB BLOOD ORDERABLES F inal Result [facility]
[address] [place] [address], from Last 3 Months or Most Recently Relevant to Health [place] [id number] [facility] PPO Care Teams Recruitment Manager Relationship Specialty Start Date End Date Yazan Wayne MD [address] [facility] [address] [place], [place] [id number] PCP - General 06/06/15
--- OUTSIDE RECORDS SUMMARY | 2025-07-23 08:47 | XMS_ITS | Encounter Summary ---
Author Organization [employer] ([place], [place], [place], [place]) Address [address] [place] [address] Care Team Providers Care Bottle House Cleaners Supervisor Name Role Phone Unavailable Primary Care Provider Unavailabl e Encounter Details Date Type Department Care Team (Late st Contact Info) Description 04/20/2020 Transcribed Document [facility] [place] Family Medicine [address] [place] [address] ProviderLucian MD [address] [place] [address] Social History Tobacco Use Types [...] tightness 04/18/2020 16:32 04/20/2020 13:17 (HASEEB MALLORY, MACHINE FUR CLEANER-EMR) Reviewed by Provider, No further action required x1 documented in this encounter Plan of Treatment Not on file documented as of this encounter Visit Diagnoses Not on filedocumented in this encounter
--- OUTSIDE RECORDS SUMMARY | 2025-07-23 08:47 | XMS_ITS | Encounter Summary ---
Author Organization [employer] ([place], [place], [place], [place]) Address [address] [place] [address] Care Team Providers Care Auto Driver Name Role Phone Unavailable Primary Care Provider Unavailabl e Encounter Details Date Type Department Care Team (Late st Contact Info) Description 04/18/2020 Transcribed Document [facility] [place] [address] [place] [address] ProviderLucian MD [address] [place] [address] Social History Tobacco Use Types [...] Communication Barrier : None Primary Language : Icelandic Any Spiritual/Cultural Needs or Requests : No [...] EDT Electronically signed by Gris Herring Conversion Underground Mine Superintendent Cerner at 01/31/2023 11:30 AM CDT documented in this encounter Plan of Treatment Not on file documented as of this encounter Visit Diagnoses Not on filedocumented in this encounter
--- OUTSIDE RECORDS SUMMARY | 2025-07-23 08:47 | XMS_ITS | Encounter Summary ---
Author Organization [employer] ([place], [place], [place], [place]) Address [address] [place] [address] Care Team Providers Care Rougher Helper Name Role Phone Unavailable Primary Care Provider Unavailabl e Encounter Details Date Type Department Care Team (Late st Contact Info) Description 04/18/2020 Transcribed Document [facility] [place] [address] [place] [address] ProviderLucian MD [address] [place] [address] Social History Tobacco Use Types [...] Historical ProviderMD - 04/18/2020 5:27 PM CDT [place] [id number] Visit Date/Time: 04/18/2020 17:27:57 DEREK FERRERA The above patient was seen in the hospital today and needs to be excused from work/school until Return to Work/School Date:04/20/2020 documented in this encounter Plan of Treatment Not on file documented as of this encounter Visit Diagnoses Not on filedocumented in this encounter
--- OUTSIDE RECORDS SUMMARY | 2025-07-23 08:47 | XMS_ITS | Encounter Summary ---
Author Organization [employer] ([place], [place], [place], [place]) Address [address] [place] [address] Care Team Providers Care Bus Inspector Name Role Phone Unavailable Primary Care Provider Unavailabl e Encounter Details Date Type Department Care Team (Late st Contact Info) Description 04/18/2020 Transcribed [place] [facility] [place] [address] ProviderLucian [place] [address] Social History Tobacco Use Types [...] : Yazan Wayne Patient Phone Number : [phone] Patient Insurance Type : Commercial (ex. Rafael Capo PPO, [employer] HMO) Source of Referral : Requirements not met Location of Patient : Emergency department Primary Care Scheduled : No Specialty Care Scheduled : No Qualify for Diabetes and/or Nutrition Referral : No Wound Care Appointment Made : No Why Patient Visited ED- Specialty spent : Other How Patient Arrived at ED : Personal Vehicle Primary Language : [place] [facility] Comment : Patient established [...]
[2025-07-23 11:39] LABS: Prostate Specific Ag, Diagnost 0.600 ng/ml (0.0-4.0); Thyroid Stimulating Hormone 0.44 uIU/mL (0.465-4.68)
== END 2025-07-23 23:59 | disposition home or self-care (01) ==
LOC: LAB 08:44
PROVIDERS: PCP Nurse Practitioner Family; Visit Provider Student in an Organized Health Care Education/Training Program
DX: E05.90 Thyrotoxicosis, unspecified without thyrotoxic crisis or storm (principal); R79.89 Other specified abnormal findings of blood chemistry
CPT/HCPCS: 36415; 83520; 84153; 84402; 84403; 84443